=== PATIENT | female | born 1955 | race Caucasian/White ===

== ENCOUNTER 2017-03-29 06:20 | Outpatient (CLI) | payer OTHER ==
[~2017-03-29 06:20] MED LIST: CLON-528 PO; ESCI10TA54 PO; LEVO100T9 PO; MELO-102 PO; METH4TAB81 PO; SIMV20TA5 PO
[2017-03-29 08:33] LABS: BASOPHILS % (AUTO) 0.6 % (0-1); EOSINOPHILS # (AUTO) 0.1 X10'3 (0-0.9); EOSINOPHILS % (AUTO) 3.4 % (0-6); HEMATOCRIT 40.4 % (35.0-45.0); HEMOGLOBIN 13.7 g/dl (12.0-16.0); LYMPHOCYTES # (AUTO) 1.4 X10'3 (1.1-4.8); LYMPHOCYTES % (AUTO) 33.9 % (21-51); MEAN CORPUSCULAR HEMOGLOBIN 31.2 PG (27.0-31.0); MEAN CORPUSCULAR VOLUME 91.9 FL (78-98); MEAN PLATELET VOLUME 8.9 FL (7.4-10.4); MONOCYTES # (AUTO) 0.3 X10'3 (0-0.9); MONOCYTES % (AUTO) 7.1 % (2-12); NEUTROPHILS # (AUTO) 2.3 X10'3 (1.8-7.7); PLATELET COUNT 176 X10'3 (140-440); RED CELL DISTRIBUTION WIDTH 13.3 % (11.5-14.5); WHITE BLOOD COUNT 4.1 X10'3 (4.5-11.0)
[2017-03-29 08:52] LABS: ALANINE AMINOTRANSFERASE 32 U/L (12-78); ALBUMIN 3.6 G/DL (3.4-5.0); ALBUMIN/GLOBULIN RATIO 1.1 (1.1-1.5); ALKALINE PHOSPHATASE 64 IU/L (46-116); ANION GAP 3 (8-16); ASPARTATE AMINO TRANSFERASE 22 U/L (10-37); BILIRUBIN,TOTAL 0.5 MG/DL (0.1-1.0); BLOOD UREA NITROGEN 12 MG/DL (7-18); BUN/CREATININE RATIO 13.3 (6.6-38.0); CALCIUM 8.9 MG/DL (8.5-10.1); CHLORIDE 106 MMOL/L (99-107); CHOL/HDL RATIO 2.7 (0.00-4.99); CHOLESTEROL 205 MG/DL (0-200); GLUCOSE 101 MG/DL (70-104); HDL CHOLESTEROL 77 MG/DL (35-60); LDL CHOLESTEROL 111 MG/DL (50-100); POTASSIUM 4.3 MMOL/L (3.5-5.1); SODIUM 140 MMOL/L (135-145); TOTAL CARBON DIOXIDE 31.2 MMOL/L (24-32); TRIGLYCERIDES 65 MG/DL (20-135); eGFR 64 ML/MIN
== END 2017-03-29 23:59 | disposition home or self-care (01) ==
LOC: LAB 06:20
PROVIDERS: ATTEND Physician Assistant
DX: E03.8 Other specified hypothyroidism (principal); E78.00 Pure hypercholesterolemia, unspecified; R79.89 Other specified abnormal findings of blood chemistry; J45.909 Unspecified asthma, uncomplicated; Z85.3 Personal history of malignant neoplasm of breast; Z98.890 Other specified postprocedural states
CPT/HCPCS: 36415; 80053; 80061; 82306; 84443; 85025

== ENCOUNTER 2017-04-13 05:01 | Emergency (ER) | payer OTHER ==
[~2017-04-13] VITALS: Ht 170.2 cm; Wt 95.3 kg
[2017-04-13] MEDS ORDERED: normal saline 1000ml 1,000 ML IV ONE (05:10)
[2017-04-13] MEDS ORDERED: normal saline 1000ML IV soln IVB ONE (05:10)
[2017-04-13] MEDS ORDERED: ondansetron/PF 4mg/2ml inj IV ONE (05:10)
[2017-04-13 05:34] LABS: BASOPHILS % (AUTO) 0.5 % (0-1); EOSINOPHILS # (AUTO) 0.1 X10'3 (0-0.9); EOSINOPHILS % (AUTO) 1.8 % (0-6); HEMATOCRIT 39.9 % (35.0-45.0); HEMOGLOBIN 13.8 g/dl (12.0-16.0); LYMPHOCYTES # (AUTO) 1.6 X10'3 (1.1-4.8); LYMPHOCYTES % (AUTO) 21.1 % (21-51); MEAN CORPUSCULAR HEMOGLOBIN 31.4 PG (27.0-31.0); MEAN CORPUSCULAR HGB CONC 34.5 % (33.0-36.5); MEAN CORPUSCULAR VOLUME 91.1 FL (78-98); MEAN PLATELET VOLUME 8.8 FL (7.4-10.4); MONOCYTES # (AUTO) 0.5 X10'3 (0-0.9); MONOCYTES % (AUTO) 7.1 % (2-12); NEUTROPHILS # (AUTO) 5.2 X10'3 (1.8-7.7); NEUTROPHILS % (AUTO) 69.5 % (42-75); PLATELET COUNT 170 X10'3 (140-440); RED BLOOD COUNT 4.38 X10'6 (4.20-5.60); RED CELL DISTRIBUTION WIDTH 13.2 % (11.5-14.5); WHITE BLOOD COUNT 7.5 X10'3 (4.5-11.0)
[2017-04-13 05:44] LABS: PARTIAL THROMBOPLASTIN TIME 29 SECONDS (22-32)
[2017-04-13 05:49] LABS: ALANINE AMINOTRANSFERASE 20 U/L (12-78); ALBUMIN 3.4 G/DL (3.4-5.0); ALBUMIN/GLOBULIN RATIO 0.9 (1.1-1.5); ALKALINE PHOSPHATASE 68 IU/L (46-116); ANION GAP 9 (8-16); ASPARTATE AMINO TRANSFERASE 16 U/L (10-37); BILIRUBIN,TOTAL 0.6 MG/DL (0.1-1.0); BLOOD UREA NITROGEN 12 MG/DL (7-18); CALCIUM 8.9 MG/DL (8.5-10.1); CHLORIDE 106 MMOL/L (99-107); GLUCOSE 115 MG/DL (70-104); LIPASE 84 U/L (73-393); MAGNESIUM 2.1 MG/DL (1.5-2.4); POTASSIUM 3.5 MMOL/L (3.5-5.1); SODIUM 141 MMOL/L (135-145); TOTAL CARBON DIOXIDE 26.4 MMOL/L (24-32); TOTAL PROTEIN 7.2 G/DL (6.4-8.2); eGFR 73 ML/MIN
[2017-04-13] MEDS ORDERED: ONDA4TAB9 PO (06:09)
[2017-04-13 06:27] VITALS: BP 160/89
== END 2017-04-13 06:29 | disposition home or self-care (01) ==
LOC: ER 05:02
DX: J11.1 Influenza due to unidentified influenza virus with other respiratory manifestations (principal); B34.9 Viral infection, unspecified; E03.9 Hypothyroidism, unspecified; Z98.890 Other specified postprocedural states; Z79.899 Other long term (current) drug therapy; Z88.5 Allergy status to narcotic agent
CPT/HCPCS: 36415; 71045; 80053; 83605; 83690; 83735; 84145; 85025; 85610; 85730; 87040; 96374; 99285; J2405; J7030

== ENCOUNTER 2017-05-22 15:29 | Observation (INO) | payer OTHER ==
[~2017-05-22] VITALS: Ht 170.2 cm; Wt 85.0 kg
[2017-05-22] MEDS ORDERED: ondansetron/PF 4mg/2ml inj IV ONE (15:40)
[2017-05-22] MEDS ORDERED: diphenhydrAMINE 50 mg/ml inj IV ONE (15:40)
[2017-05-22] MEDS ORDERED: meclizine 12.5mg tablet PO ONE (15:40)
[2017-05-22] MEDS ORDERED: LORazepam 2 mg/ml vial IV ONE (15:40)
[2017-05-22 16:00] LABS: BASOPHILS % (AUTO) 0.7 % (0-1); EOSINOPHILS # (AUTO) 0.1 X10'3 (0-0.9); EOSINOPHILS % (AUTO) 1.5 % (0-6); HEMATOCRIT 43.6 % (35.0-45.0); HEMOGLOBIN 14.8 g/dl (12.0-16.0); LYMPHOCYTES # (AUTO) 1.4 X10'3 (1.1-4.8); LYMPHOCYTES % (AUTO) 23.6 % (21-51); MEAN CORPUSCULAR HEMOGLOBIN 31.2 PG (27.0-31.0); MEAN CORPUSCULAR HGB CONC 33.9 % (33.0-36.5); MEAN CORPUSCULAR VOLUME 91.8 FL (78-98); MEAN PLATELET VOLUME 9.4 FL (7.4-10.4); MONOCYTES # (AUTO) 0.3 X10'3 (0-0.9); MONOCYTES % (AUTO) 4.9 % (2-12); NEUTROPHILS # (AUTO) 4.2 X10'3 (1.8-7.7); NEUTROPHILS % (AUTO) 69.3 % (42-75); PLATELET COUNT 166 X10'3 (140-440); RED BLOOD COUNT 4.75 X10'6 (4.20-5.60); RED CELL DISTRIBUTION WIDTH 13.6 % (11.5-14.5); WHITE BLOOD COUNT 6.1 X10'3 (4.5-11.0)
[2017-05-22 16:24] LABS: ALANINE AMINOTRANSFERASE 31 U/L (12-78); ALBUMIN 3.8 G/DL (3.4-5.0); ALKALINE PHOSPHATASE 57 IU/L (46-116); ANION GAP 12 (8-16); ASPARTATE AMINO TRANSFERASE 21 U/L (10-37); BILIRUBIN,TOTAL 0.5 MG/DL (0.1-1.0); BLOOD UREA NITROGEN 14 MG/DL (7-18); BUN/CREATININE RATIO 16.5 (6.6-38.0); CALCIUM 9.5 MG/DL (8.5-10.1); CHLORIDE 104 MMOL/L (99-107); CREATININE 0.85 MG/DL (0.40-0.90); GLUCOSE 118 MG/DL (70-104); POTASSIUM 3.5 MMOL/L (3.5-5.1); SODIUM 139 MMOL/L (135-145); TOTAL CARBON DIOXIDE 22.9 MMOL/L (24-32); TOTAL PROTEIN 7.7 G/DL (6.4-8.2); eGFR 68 ML/MIN
[2017-05-22] MEDS ORDERED: acetaminophen 325mg tablet PO PRN (17:45)
[2017-05-22] MEDS ORDERED: ondansetron/PF 4mg/2ml inj IV PRN (17:45)
[2017-05-22] MEDS ORDERED: mag hydrox/Alum hydrox/simeth 30ml oral suspension PO PRN (17:45)
[2017-05-22] MEDS ORDERED: LORazepam 2 mg/ml vial IV PRN (17:45)
[2017-05-22] MEDS ORDERED: magnesium hydroxide 30ml (MOM) UD suspension PO PRN (17:45)
[2017-05-22] MEDS ORDERED: ondansetron 4mg rapidly disintigrating tab PO PRN (17:45)
[2017-05-22] MEDS: normal saline 1000ml 1,000 ML IV SCH (18:42)
[2017-05-22] MEDS ORDERED: PANT40TA4 PO (20:47)
[2017-05-22 21:21] VITALS: BP 145/73
[2017-05-22] MEDS: meclizine 12.5mg tablet PO PRN (22:04)
[2017-05-23] VITALS: BP 104/68
[2017-05-23] MEDS: meclizine 12.5mg tablet PO PRN ×2 (03:53→09:51)
[2017-05-23] MEDS: normal saline 1000ml 1,000 ML IV SCH ×2 (04:01→13:45)
[2017-05-23 07:00] VITALS: BP 108/62
[2017-05-23] MEDS: enoxaparin 40mg/0.4ml syringe SUBCUT SCH (07:52)
[2017-05-23 11:00] VITALS: BP 122/62
[2017-05-23] MEDS ORDERED: clonazePAM 0.5mg tablet PO PRN (12:00)
[2017-05-23] MEDS: levoTHYROXINE 100mcg tablet PO SCH (12:45)
[2017-05-23 19:00] VITALS: BP 115/64
[2017-05-23] MEDS ORDERED: atorvastatin 10mg tablet PO SCH (21:00)
[2017-05-24] VITALS: BP 113/59
[2017-05-24] MEDS: normal saline 1000ml 1,000 ML IV SCH (00:37)
[2017-05-24] MEDS: levoTHYROXINE 100mcg tablet PO SCH (07:12)
[2017-05-24] MEDS: enoxaparin 40mg/0.4ml syringe SUBCUT SCH (07:12)
[2017-05-24] MEDS ORDERED: citalopram 20mg tablet PO SCH (08:00)
[2017-05-24] MEDS ORDERED: pantoprazole 40mg Tablet.DR PO SCH (08:00)
[2017-05-24] MEDS ORDERED: MECL-111 PO (11:56)
[2017-05-24] MEDS ORDERED: DIAZ2TAB3 PO (11:56)
[2017-05-24] MEDS ORDERED: ONDA4TAB9 PO (11:56)
== END 2017-05-24 12:30 | disposition home or self-care (01) ==
LOC: ER 15:30 → ED HOLD 17:50 → CMPBEDREQ 21:59 → SUR 3N 22:00
PROVIDERS: ADMIT Family Medicine; ATTEND Family Medicine
DX: R42 Dizziness and giddiness (principal); E03.9 Hypothyroidism, unspecified; E78.5 Hyperlipidemia, unspecified; F41.9 Anxiety disorder, unspecified; F32.9 Major depressive disorder, single episode, unspecified; Z85.3 Personal history of malignant neoplasm of breast; Z85.42 Personal history of malignant neoplasm of other parts of uterus; Z90.11 Acquired absence of right breast and nipple; Z90.710 Acquired absence of both cervix and uterus
CPT/HCPCS: 36415; 70450; 80053; 83735; 85025; 87070; 93005; 96361; 96372; 96374; 96375; 96376; 97161; 97530; 99285; G0378; J1200; J1650; J2060; J2405; J7030; J8597

== ENCOUNTER 2017-07-31 08:29 | Outpatient (CLI) | payer OTHER ==
[~2017-07-31 08:29] MED LIST changes: +DIAZ2TAB3 PO; +MECL-111 PO; -MELO-102 PO; -METH4TAB81 PO; +PANT40TA4 PO
== END 2017-07-31 23:59 | disposition home or self-care (01) ==
LOC: RAD 08:29
PROVIDERS: ATTEND Physician Assistant
DX: M19.011 Primary osteoarthritis, right shoulder (principal); R53.1 Weakness; J45.909 Unspecified asthma, uncomplicated; Z87.891 Personal history of nicotine dependence
CPT/HCPCS: 73221

== ENCOUNTER 2017-09-21 10:46 | Outpatient (CLI) | payer OTHER | END 2017-09-21 23:59 | disposition home or self-care (01) | LOC: RAD 10:46 | PROVIDERS: ATTEND Orthopaedic Surgery | DX: M79.671 Pain in right foot (principal); J45.909 Unspecified asthma, uncomplicated; Z98.890 Other specified postprocedural states | CPT/HCPCS: 73630 ==

== ENCOUNTER 2017-10-25 09:48 | Observation (INO) | payer OTHER ==
[2017-10-23 14:48] LABS: BASOPHILS % (AUTO) 0.5 % (0-1); EOSINOPHILS # (AUTO) 0.1 X10'3 (0-0.9); EOSINOPHILS % (AUTO) 0.9 % (0-6); LYMPHOCYTES # (AUTO) 1.7 X10'3 (1.1-4.8); LYMPHOCYTES % (AUTO) 27.1 % (21-51); MEAN CORPUSCULAR HEMOGLOBIN 32.2 PG (27.0-31.0); MEAN CORPUSCULAR HGB CONC 34.4 % (33.0-36.5); MEAN CORPUSCULAR VOLUME 93.5 FL (78-98); MEAN PLATELET VOLUME 9.2 FL (7.4-10.4); MONOCYTES # (AUTO) 0.4 X10'3 (0-0.9); MONOCYTES % (AUTO) 6.6 % (2-12); NEUTROPHILS # (AUTO) 4.1 X10'3 (1.8-7.7); NEUTROPHILS % (AUTO) 64.9 % (42-75); PRE OP HEMATOCRIT 41.5 % (35.0-45.0); PRE OP HEMOGLOBIN 14.3 g/dL (12.0-16.0); PRE OP PLATELET COUNT 192 X10'3 (140-440); RED BLOOD COUNT 4.44 X10'6 (4.20-5.60); RED CELL DISTRIBUTION WIDTH 13.5 % (11.5-14.5)
[2017-10-23 14:59] LABS: PRE OP PROTIME 10.1 SECONDS (9.0-12.0)
[2017-10-23 15:05] LABS: ALBUMIN 3.4 G/DL (3.4-5.0); ALBUMIN/GLOBULIN RATIO 0.9 (1.1-1.5); ALKALINE PHOSPHATASE 74 IU/L (46-116); BLOOD UREA NITROGEN 13 MG/DL (7-18); BUN/CREATININE RATIO 16.3 (6.6-38.0); CALCIUM 9.1 MG/DL (8.5-10.1); CHLORIDE 105 MMOL/L (99-107); PRE OP ALT 18 U/L (30-65); PRE OP ANION GAP 5 (8-16); PRE OP AST 15 U/L (10-37); PRE OP BILIRUB, TOTAL 0.3 MG/DL (0.0-1.0); PRE OP GLUCOSE 82 MG/DL (70-104); PRE OP POTASSIUM 3.7 MMOL/L (3.4-5.1); PRE OP SODIUM 141 MMOL/L (135-145); TOTAL CARBON DIOXIDE 30.6 MMOL/L (24-32); TOTAL PROTEIN 7.2 G/DL (6.4-8.2); eGFR 73 ML/MIN
[~2017-10-25] VITALS: Ht 170.2 cm; Wt 90.0 kg
[2017-10-25] VITALS (18 sets, daily range): BP systolic 96–130; BP diastolic 57–75
[~2017-10-25 09:48] MED LIST changes: +Cefazolin 2GM/50ML dext iso,osmotic IVPB IV ONE; -DIAZ2TAB3 PO; -MECL-111 PO; -PANT40TA4 PO; +famotidine 20mg tablet PO ONE; +vancomycin inj 1,500 MG in normal saline 300ml IV soln IV ONE
[2017-10-25] MEDS: ringers solution, lacted 1,000 ML IV SCH ×2 (10:26→16:15)
[2017-10-25] MEDS ORDERED: BUPIVAcaine/PF 2.5mg/ml (0.25%) 10ml vial ONE (11:54)
[2017-10-25] MEDS ORDERED: midazolam 2 mg/2 ml injection ONE ×2 (12:25→12:39)
[2017-10-25] MEDS ORDERED: sevoflurane 250ml liquid IH ONE (12:26)
[2017-10-25] MEDS ORDERED: fentaNYL /PF 50mcg/ml 5ml ampule ONE ×2 (12:39→13:24)
[2017-10-25] MEDS ORDERED: propofol inj 20 ML IV ONE (12:51)
[2017-10-25] MEDS ORDERED: ondansetron/PF 4mg/2ml inj ONE (12:51)
[2017-10-25] MEDS ORDERED: dexamethasone sod phosphate 4mg/ml inj. ONE (12:51)
[2017-10-25] MEDS ORDERED: LIDOcaine 2% (20mg/ml) 5ml vial ONE (12:51)
[2017-10-25] MEDS ORDERED: fentaNYL/PF 50MCG/1 ML 2ML syringe IV PRN ×2 (13:05)
[2017-10-25] MEDS ORDERED: enalaprilat dihydrate 2.5mg/2ml vial IV PRN (13:05)
[2017-10-25] MEDS ORDERED: HYDROmorphone inj. 0.5 MG/0.5 ML DISP.SYRIN IV PRN ×3 (13:05→15:20)
[2017-10-25] MEDS ORDERED: ringers solution, lacted 1,000 ML IV SCH (13:05)
[2017-10-25] MEDS ORDERED: hydrALAZINE 20mg/ml inj. IV PRN (13:05)
[2017-10-25] MEDS ORDERED: ondansetron/PF 4mg/2ml inj IV PRN ×2 (13:05→15:20)
[2017-10-25] MEDS ORDERED: diphenhydrAMINE 25mg capsule PO PRN ×2 (15:20)
[2017-10-25] MEDS ORDERED: magnesium hydroxide 30ml (MOM) UD suspension PO PRN (15:20)
[2017-10-25] MEDS ORDERED: HYDROcodone/acetaminophen 10/325mg tab PO PRN (15:20)
[2017-10-25] MEDS ORDERED: bisacodyl 10mg suppository rectal RC PRN (15:20)
[2017-10-25] MEDS ORDERED: acetaminophen 325mg tablet PO PRN (15:20)
[2017-10-25] MEDS ORDERED: HYDROmorphone 1 mg/ml syringe IV PRN (15:38)
[2017-10-25] MEDS: HYDROcodone/acetaminophen 10/325mg tab PO PRN ×2 (16:49→20:55)
[2017-10-25] MEDS: ceFAZolin 1GM/D5W- ADD-VANTAGE 50 ML IV SCH (18:44)
[2017-10-25] MEDS: potassium Cl 20mEq in NS 1,000 ML IV SCH (19:12)
[2017-10-25] MEDS ORDERED: vancomycin/NS 1 GM ADD-VANTAGE 250 ML IV SCH (20:00)
[2017-10-25] MEDS ORDERED: atorvastatin 10mg tablet PO SCH (21:00)
[2017-10-25] MEDS ORDERED: sennosides 8.6mg tablet PO SCH (21:00)
[2017-10-25] MEDS ORDERED: SIMVASTATIN PO SCH (21:00)
[2017-10-26] MEDS: HYDROcodone/acetaminophen 10/325mg tab PO PRN ×2 (00:51→04:55)
[2017-10-26] MEDS: ceFAZolin 1GM/D5W- ADD-VANTAGE 50 ML IV SCH (00:53)
[2017-10-26 01:50] VITALS: BP 94/54
[2017-10-26] MEDS: potassium Cl 20mEq in NS 1,000 ML IV SCH (04:39)
[2017-10-26 06:00] VITALS: BP 100/58
[2017-10-26] MEDS ORDERED: levoTHYROXINE 100mcg tablet PO SCH (08:00)
[2017-10-26] MEDS ORDERED: clonazePAM 0.5mg tablet PO SCH (08:00)
[2017-10-26] MEDS ORDERED: citalopram 20mg tablet PO SCH (08:00)
[2017-10-26] MEDS ORDERED: HYDR-3972 PO (09:05)
[2017-10-26 09:45] VITALS: BP 102/49
== END 2017-10-26 16:54 | disposition home or self-care (01) ==
LOC: PAS 09:48 → ORTHO 4S 15:19
PROVIDERS: ADMIT Orthopaedic Surgery; ATTEND Orthopaedic Surgery
DX: M75.101 Unspecified rotator cuff tear or rupture of right shoulder, not specified as traumatic (principal); M19.011 Primary osteoarthritis, right shoulder; M75.21 Bicipital tendinitis, right shoulder; E78.5 Hyperlipidemia, unspecified; F41.9 Anxiety disorder, unspecified; F32.9 Major depressive disorder, single episode, unspecified; E03.9 Hypothyroidism, unspecified; D62 Acute posthemorrhagic anemia
CPT/HCPCS: 23120; 23130; 23412; 36415; 80053; 85025; 85610; 85730; 93005; 96365; 96366; 96367; 96375; A4565; A6223; A6253; A6449; C1713; G0378; J0690; J1100; J1170; J2001; J2250; J2405; J2704; J3010; J3370; J3490; J7120; A7000

== ENCOUNTER 2018-04-09 06:19 | Outpatient (CLI) | payer OTHER ==
[~2018-04-09 06:19] MED LIST changes: -Cefazolin 2GM/50ML dext iso,osmotic IVPB IV ONE; +HYDR-3972 PO; -famotidine 20mg tablet PO ONE; -vancomycin inj 1,500 MG in normal saline 300ml IV soln IV ONE
[2018-04-09 06:52] LABS: BASOPHILS % (AUTO) 0.8 % (0-1); EOSINOPHILS # (AUTO) 0.1 X10'3 (0-0.9); EOSINOPHILS % (AUTO) 3.6 % (0-6); HEMATOCRIT 41.4 % (35.0-45.0); HEMOGLOBIN 14.3 g/dl (12.0-16.0); LYMPHOCYTES # (AUTO) 1.2 X10'3 (1.1-4.8); LYMPHOCYTES % (AUTO) 30.4 % (21-51); MEAN CORPUSCULAR HEMOGLOBIN 31.9 PG (27.0-31.0); MEAN CORPUSCULAR HGB CONC 34.5 % (33.0-36.5); MEAN CORPUSCULAR VOLUME 92.4 FL (78-98); MEAN PLATELET VOLUME 9.4 FL (7.4-10.4); MONOCYTES # (AUTO) 0.3 X10'3 (0-0.9); MONOCYTES % (AUTO) 7.1 % (2-12); NEUTROPHILS # (AUTO) 2.3 X10'3 (1.8-7.7); NEUTROPHILS % (AUTO) 58.1 % (42-75); PLATELET COUNT 183 X10'3 (140-440); RED BLOOD COUNT 4.48 X10'6 (4.20-5.60); RED CELL DISTRIBUTION WIDTH 13.3 % (11.5-14.5)
[2018-04-09 07:17] LABS: ALANINE AMINOTRANSFERASE 27 U/L (12-78); ALBUMIN 3.4 G/DL (3.4-5.0); ALBUMIN/GLOBULIN RATIO 0.9 (1.1-1.5); ALKALINE PHOSPHATASE 85 IU/L (46-116); ANION GAP 9 (8-16); ASPARTATE AMINO TRANSFERASE 22 U/L (10-37); BILIRUBIN,TOTAL 0.4 MG/DL (0.1-1.0); BLOOD UREA NITROGEN 9 MG/DL (7-18); BUN/CREATININE RATIO 10.7 (6.6-38.0); CALCIUM 8.6 MG/DL (8.5-10.1); CHLORIDE 107 MMOL/L (99-107); CHOL/HDL RATIO 3.9 (0.00-4.99); CHOLESTEROL 235 MG/DL (0-200); CREATININE 0.84 MG/DL (0.40-0.90); GLUCOSE 95 MG/DL (70-104); HDL CHOLESTEROL 61 MG/DL (35-60); LDL CHOLESTEROL 164 MG/DL (50-100); POTASSIUM 4.3 MMOL/L (3.5-5.1); SODIUM 143 MMOL/L (135-145); TOTAL CARBON DIOXIDE 26.9 MMOL/L (24-32); TOTAL PROTEIN 7.1 G/DL (6.4-8.2); TRIGLYCERIDES 50 MG/DL (20-135); eGFR 69 ML/MIN
== END 2018-04-09 23:59 | disposition home or self-care (01) ==
LOC: LAB 06:19
PROVIDERS: ATTEND Physician Assistant
DX: Z51.81 Encounter for therapeutic drug level monitoring (principal); F41.1 Generalized anxiety disorder; R12 Heartburn; R79.89 Other specified abnormal findings of blood chemistry; E78.00 Pure hypercholesterolemia, unspecified; J45.909 Unspecified asthma, uncomplicated; Z96.651 Presence of right artificial knee joint; Z87.891 Personal history of nicotine dependence
CPT/HCPCS: 36415; 80053; 80061; 82306; 84443; 85025

== ENCOUNTER 2018-04-11 09:55 | Outpatient (CLI) | payer OTHER | END 2018-04-11 23:59 | disposition home or self-care (01) | LOC: RAD 09:55 | PROVIDERS: ATTEND Orthopaedic Surgery | DX: M19.042 Primary osteoarthritis, left hand (principal); J45.909 Unspecified asthma, uncomplicated; Z96.612 Presence of left artificial shoulder joint; Z96.611 Presence of right artificial shoulder joint; Z88.5 Allergy status to narcotic agent | CPT/HCPCS: 73140 ==

== ENCOUNTER 2018-04-17 11:12 | Emergency (ER) | payer OTHER ==
[~2018-04-17] VITALS: Ht 170.2 cm; Wt 93.2 kg
[2018-04-17] MEDS ORDERED: proCHLORperazine 10 MG/2 ml inj IV ONE (12:00)
[2018-04-17] MEDS ORDERED: ketorolac tromethamine 15mg/ml inj. IV ONE (12:00)
[2018-04-17] MEDS ORDERED: diphenhydrAMINE 50 mg/ml inj IV ONE (12:00)
[2018-04-17] MEDS ORDERED: normal saline 1000ML IV soln IVB ONE (12:00)
[2018-04-17 13:47] VITALS: BP 102/56
== END 2018-04-17 14:03 | disposition home or self-care (01) ==
LOC: ER 11:12
DX: G43.909 Migraine, unspecified, not intractable, without status migrainosus (principal); H53.412 Scotoma involving central area, left eye; J45.909 Unspecified asthma, uncomplicated; E03.9 Hypothyroidism, unspecified; Z90.710 Acquired absence of both cervix and uterus; Z88.6 Allergy status to analgesic agent
CPT/HCPCS: 96374; 96375; 99284; J0780; J1200; J1885; J7030

== ENCOUNTER 2018-07-19 11:28 | Emergency (ER) | payer OTHER ==
[~2018-07-19] VITALS: Ht 170.2 cm; Wt 90.9 kg
[2018-07-19 13:28] VITALS: BP 126/81
== END 2018-07-19 13:30 | disposition home or self-care (01) ==
LOC: ER 11:28
DX: M25.561 Pain in right knee (principal); G43.909 Migraine, unspecified, not intractable, without status migrainosus; J45.909 Unspecified asthma, uncomplicated; E03.9 Hypothyroidism, unspecified; Z85.3 Personal history of malignant neoplasm of breast; Z90.710 Acquired absence of both cervix and uterus; Z98.890 Other specified postprocedural states; Z60.2 Problems related to living alone; Z88.5 Allergy status to narcotic agent; Z79.899 Other long term (current) drug therapy; X50.1XXA Overexertion from prolonged static or awkward postures, initial encounter; Y93.89 Activity, other specified; Y92.89 Other specified places as the place of occurrence of the external cause; Y99.8 Other external cause status
CPT/HCPCS: 73564; 99283

== ENCOUNTER 2018-10-16 10:02 | Outpatient (CLI) | payer OTHER | END 2018-10-16 23:59 | disposition home or self-care (01) | LOC: RAD 10:02 | PROVIDERS: ATTEND Orthopaedic Surgery | DX: M17.12 Unilateral primary osteoarthritis, left knee (principal); M76.9 Unspecified enthesopathy, lower limb, excluding foot; J45.909 Unspecified asthma, uncomplicated; Z85.3 Personal history of malignant neoplasm of breast; Z87.891 Personal history of nicotine dependence; Z88.5 Allergy status to narcotic agent | CPT/HCPCS: 73564 ==

== ENCOUNTER 2018-10-31 12:30 | Outpatient (CLI) | payer OTHER | END 2018-10-31 23:59 | disposition home or self-care (01) | LOC: RAD 12:30 | PROVIDERS: ATTEND Physician Assistant | DX: M81.0 Age-related osteoporosis without current pathological fracture (principal); J45.909 Unspecified asthma, uncomplicated; Z87.891 Personal history of nicotine dependence | CPT/HCPCS: 73630 ==

== ENCOUNTER 2019-01-01 07:09 | Day surgery (SDC) | payer OTHER ==
[2018-12-30 09:39] LABS: BASOPHILS % (AUTO) 0.8 % (0-1); EOSINOPHILS # (AUTO) 0.1 X10'3 (0-0.9); EOSINOPHILS % (AUTO) 1.1 % (0-6); LYMPHOCYTES # (AUTO) 1.2 X10'3 (1.1-4.8); LYMPHOCYTES % (AUTO) 26.1 % (21-51); MEAN CORPUSCULAR HEMOGLOBIN 32.4 PG (27.0-31.0); MEAN CORPUSCULAR HGB CONC 34.2 g/dL (33.0-36.5); MEAN CORPUSCULAR VOLUME 94.8 FL (78-98); MEAN PLATELET VOLUME 9.4 FL (7.4-10.4); MONOCYTES # (AUTO) 0.4 X10'3 (0-0.9); MONOCYTES % (AUTO) 7.7 % (2-12); NEUTROPHILS % (AUTO) 64.3 % (42-75); PRE OP HEMATOCRIT 41.9 % (35.0-45.0); PRE OP HEMOGLOBIN 14.3 g/dL (12.0-16.0); PRE OP PLATELET COUNT 179 X10'3 (140-440); RED BLOOD COUNT 4.42 X10'6 (4.20-5.60)
[2018-12-30 09:40] LABS: CLARITY,URINE SLIGHTLY CLOUDY (Clear); COLOR,URINE YELLOW (Yellow); GLUCOSE, URINE NEGATIVE (Neg); KETONES,URINE NEGATIVE (Neg); LEUKOCYTE ESTERASE ,URINE TRACE (Neg); NITRITES, URINE NEGATIVE (Neg); OCCULT BLOOD,URINE SMALL (Neg); PH,URINE 5.5 (4.8-8.0); PROTEIN,URINE NEGATIVE (Neg); UROBILINOGEN,URINE 0.2 E.U/dL (0.2-1.0)
[2018-12-30 09:45] LABS: UA COLLECTION TYPE CLN CATCH MIDSTREAM
[2018-12-30 09:51] LABS: PRE OP PROTIME 10.3 SECONDS (9.0-12.0)
[2018-12-30 09:51] LABS: MUCUS STRANDS MANY /LPF (Neg); SQUAMOUS EPITHELIAL CELL,UR MODERATE /LPF (FEW)
[2018-12-30 09:52] LABS: BACTERIA,URINE FEW /HPF (Neg)
[2018-12-30 09:54] LABS: ALBUMIN 3.6 G/DL (3.4-5.0); ALBUMIN/GLOBULIN RATIO 0.9 (1.1-1.5); ALKALINE PHOSPHATASE 83 IU/L (46-116); BLOOD UREA NITROGEN 9 MG/DL (7-18); BUN/CREATININE RATIO 10.3 (6.6-38.0); CALCIUM 8.9 MG/DL (8.5-10.1); CHLORIDE 106 MMOL/L (99-107); CREATININE 0.87 MG/DL (0.40-0.90); PRE OP ALT 24 U/L (30-65); PRE OP ANION GAP 8 (8-16); PRE OP AST 18 U/L (10-37); PRE OP BILIRUB, TOTAL 0.5 MG/DL (0.0-1.0); PRE OP GLUCOSE 85 MG/DL (70-104); PRE OP POTASSIUM 3.8 MMOL/L (3.4-5.1); PRE OP SODIUM 144 MMOL/L (135-145); TOTAL CARBON DIOXIDE 30.2 MMOL/L (24-32); TOTAL PROTEIN 7.6 G/DL (6.4-8.2); eGFR 66 ML/MIN
[~2019-01-01] VITALS: Ht 170.2 cm; Wt 91.4 kg
[2019-01-01] VITALS (9 sets, daily range): BP systolic 110–132; BP diastolic 67–81
[~2019-01-01 07:09] MED LIST changes: +CHOL10002 PO; +CYAN500T63 PO; -HYDR-3972 PO; -SIMV20TA5 PO; +cefazolin/dext.iso 2gm/50ml 50 ML IV ONE; +famotidine 20mg tablet PO ONE; +ringers solution, lacted 1,000 ML IV SCH
[2019-01-01] MEDS ORDERED: ringers solution, lacted 1,000 ML IV SCH (08:38)
[2019-01-01] MEDS ORDERED: fentaNYL/PF 50MCG/1 ML 2ML syringe IV PRN ×2 (08:40)
[2019-01-01] MEDS ORDERED: HYDROmorphone inj. 0.5 MG/0.5 ML DISP.SYRIN IV PRN ×2 (08:40)
[2019-01-01] MEDS ORDERED: ondansetron/PF 4mg/2ml inj IV PRN (08:40)
[2019-01-01] MEDS ORDERED: hydrALAZINE 20mg/ml inj. IV PRN (08:40)
[2019-01-01] MEDS ORDERED: labetalol 20mg/4ml (5mg/ml) syringe IV PRN (08:40)
[2019-01-01] MEDS ORDERED: BUPIVAcaine/PF 2.5 mg/ml (0.25%) 30ml vial ONE (11:05)
[2019-01-01] MEDS ORDERED: dexamethasone sod phosphate 10mg/ml inj ONE (11:10)
[2019-01-01] MEDS ORDERED: sevoflurane 250ml liquid IH ONE (11:10)
[2019-01-01] MEDS ORDERED: fentaNYL/PF 50MCG/1 ML 2ML syringe ONE (11:14)
[2019-01-01] MEDS ORDERED: midazolam 2 mg/2 ml injection ONE (11:15)
[2019-01-01] MEDS ORDERED: LIDOcaine 2% (20mg/ml) 5ml vial ONE (11:29)
[2019-01-01] MEDS ORDERED: ondansetron/PF 4mg/2ml inj ONE (11:29)
[2019-01-01] MEDS ORDERED: propofol inj 20 ML IV ONE (11:29)
--- NOTE | 2019-01-01 12:04 | NUR ---
Received from OR via [facility], accompanied by Anesthesiologist DR SANTIAGO and report given by Anesthesiologist. PT DROWSY, DENIES PAIN, PT W/3 BANDAIDS COVERING INCISIONS ON LOWER BACK CDI. Addendum: 01/01/19 at 1224 by Darline Zuniga RN Amended: Links added.
--- NOTE | 2019-01-01 13:24 | NUR ---
D/C INSTRUCTIONS GIVEN AND GONE OVER W/PT AND PTS DAUGHTER WHOM VERBALIZE UNDERSTANDING, PT D/CD TO HOME VIA W/C TO PRIVATE VEHICLE W/O INCIDENT. Addendum: 01/01/19 at 1342 by Darline Zuniga RN Amended: Links added.
== END 2019-01-01 13:24 | disposition home or self-care (01) ==
LOC: PAS 07:09
PROVIDERS: ATTEND Surgery
DX: D17.1 Benign lipomatous neoplasm of skin and subcutaneous tissue of trunk (principal); F32.9 Major depressive disorder, single episode, unspecified; M19.90 Unspecified osteoarthritis, unspecified site; E05.00 Thyrotoxicosis with diffuse goiter without thyrotoxic crisis or storm; E03.9 Hypothyroidism, unspecified; E66.9 Obesity, unspecified; Z68.31 Body mass index [BMI] 31.0-31.9, adult; Z88.5 Allergy status to narcotic agent; Z85.3 Personal history of malignant neoplasm of breast; Z87.891 Personal history of nicotine dependence; Z79.899 Other long term (current) drug therapy; Z90.710 Acquired absence of both cervix and uterus; Z90.10 Acquired absence of unspecified breast and nipple; Z96.651 Presence of right artificial knee joint; Z91.09 Other allergy status, other than to drugs and biological substances; Z90.11 Acquired absence of right breast and nipple; Z85.42 Personal history of malignant neoplasm of other parts of uterus; Z79.01 Long term (current) use of anticoagulants; Z82.3 Family history of stroke; Z80.1 Family history of malignant neoplasm of trachea, bronchus and lung
CPT/HCPCS: 21930; 36415; 80053; 81001; 82948; 85025; 85610; 85730; 87088; 93005; J1100; J2001; J2250; J2405; J2704; J3010; J3490; J7120; A4618; A7000

== ENCOUNTER 2019-03-11 06:21 | Emergency (ER) | payer OTHER ==
[~2019-03-11] VITALS: Ht 170.2 cm; Wt 84.0 kg
[~2019-03-11 06:21] MED LIST changes: -cefazolin/dext.iso 2gm/50ml 50 ML IV ONE; -famotidine 20mg tablet PO ONE; -ringers solution, lacted 1,000 ML IV SCH
[2019-03-11 08:10] LABS: BASOPHILS % (AUTO) 1.1 % (0-1); EOSINOPHILS # (AUTO) 0.1 X10'3 (0-0.9); HEMATOCRIT 42.6 % (35.0-45.0); HEMOGLOBIN 14.6 g/dl (12.0-16.0); LYMPHOCYTES # (AUTO) 1.4 X10'3 (1.1-4.8); LYMPHOCYTES % (AUTO) 35.4 % (21-51); MEAN CORPUSCULAR HEMOGLOBIN 32.1 PG (27.0-31.0); MEAN CORPUSCULAR HGB CONC 34.4 g/dL (33.0-36.5); MEAN CORPUSCULAR VOLUME 93.3 FL (78-98); MEAN PLATELET VOLUME 9.2 FL (7.4-10.4); MONOCYTES # (AUTO) 0.3 X10'3 (0-0.9); MONOCYTES % (AUTO) 7.4 % (2-12); NEUTROPHILS # (AUTO) 2.2 X10'3 (1.8-7.7); NEUTROPHILS % (AUTO) 54.1 % (42-75); PLATELET COUNT 178 X10'3 (140-440); RED BLOOD COUNT 4.57 X10'6 (4.20-5.60)
[2019-03-11 09:15] LABS: ALANINE AMINOTRANSFERASE 34 U/L (12-78); ALBUMIN 3.6 G/DL (3.4-5.0); ALKALINE PHOSPHATASE 87 IU/L (46-116); ANION GAP 6 (8-16); ASPARTATE AMINO TRANSFERASE 23 U/L (10-37); BILIRUBIN,TOTAL 0.5 MG/DL (0.1-1.0); BLOOD UREA NITROGEN 10 MG/DL (7-18); CALCIUM 9.1 MG/DL (8.5-10.1); CHLORIDE 108 MMOL/L (99-107); CREATININE 0.83 MG/DL (0.40-0.90); GLUCOSE 86 MG/DL (70-104); POTASSIUM 3.9 MMOL/L (3.5-5.1); SODIUM 143 MMOL/L (135-145); TOTAL CARBON DIOXIDE 29.1 MMOL/L (24-32); TOTAL PROTEIN 7.2 G/DL (6.4-8.2); eGFR 70 ML/MIN
[2019-03-11 09:42] VITALS: BP 67/125
== END 2019-03-11 09:44 | disposition home or self-care (01) ==
LOC: ER 06:22
DX: R42 Dizziness and giddiness (principal); R00.0 Tachycardia, unspecified; G43.909 Migraine, unspecified, not intractable, without status migrainosus; J45.909 Unspecified asthma, uncomplicated; E03.9 Hypothyroidism, unspecified; Z85.3 Personal history of malignant neoplasm of breast; Z98.890 Other specified postprocedural states; Z90.710 Acquired absence of both cervix and uterus; Z88.5 Allergy status to narcotic agent; Z79.899 Other long term (current) drug therapy
CPT/HCPCS: 36415; 71045; 80053; 84484; 85025; 93005; 99284

== ENCOUNTER 2019-03-25 14:36 | Outpatient (CLI) | payer OTHER ==
[~2019-03-25 14:36] MED LIST changes: -ESCI10TA54 PO; +ESCI10TA61 PO
== END 2019-03-25 23:59 | disposition home or self-care (01) ==
LOC: CARD DIAG 14:36
PROVIDERS: ATTEND Physician Assistant
DX: I34.1 Nonrheumatic mitral (valve) prolapse (principal); R00.0 Tachycardia, unspecified
CPT/HCPCS: 93306

== ENCOUNTER 2019-08-02 22:20 | Emergency (ER) | payer OTHER ==
[~2019-08-02] VITALS: Ht 170.2 cm; Wt 90.9 kg
[2019-08-02 23:02] LABS: BASOPHILS # (AUTO) 0.1 X10'3 (0-0.2); EOSINOPHILS # (AUTO) 0.1 X10'3 (0-0.9); EOSINOPHILS % (AUTO) 1.9 % (0-6); HEMOGLOBIN 14.5 g/dl (12.0-16.0); LYMPHOCYTES # (AUTO) 2.7 X10'3 (1.1-4.8); MEAN CORPUSCULAR HEMOGLOBIN 31.6 PG (27.0-31.0); MEAN CORPUSCULAR HGB CONC 33.7 g/dL (33.0-36.5); MEAN CORPUSCULAR VOLUME 93.8 FL (78-98); MEAN PLATELET VOLUME 9.4 FL (7.4-10.4); MONOCYTES # (AUTO) 0.5 X10'3 (0-0.9); MONOCYTES % (AUTO) 8.7 % (2-12); NEUTROPHILS # (AUTO) 2.7 X10'3 (1.8-7.7); NEUTROPHILS % (AUTO) 44.4 % (42-75); PLATELET COUNT 191 X10'3 (140-440); RED BLOOD COUNT 4.59 X10'6 (4.20-5.60); RED CELL DISTRIBUTION WIDTH 13.1 % (11.5-14.5); WHITE BLOOD COUNT 6.2 X10'3 (4.5-11.0)
[2019-08-02 23:05] LABS: ALANINE AMINOTRANSFERASE 27 U/L (12-78); ALBUMIN 3.7 G/DL (3.4-5.0); ALKALINE PHOSPHATASE 100 IU/L (46-116); ANION GAP 7 (8-16); ASPARTATE AMINO TRANSFERASE 23 U/L (10-37); BILIRUBIN,TOTAL 0.4 MG/DL (0.1-1.0); BLOOD UREA NITROGEN 12 MG/DL (7-18); CALCIUM 8.9 MG/DL (8.5-10.1); CHLORIDE 109 MMOL/L (99-107); CREATININE 0.86 MG/DL (0.40-0.90); GLUCOSE 100 MG/DL (70-104); POTASSIUM 3.7 MMOL/L (3.5-5.1); SODIUM 142 MMOL/L (135-145); TOTAL CARBON DIOXIDE 25.9 MMOL/L (24-32); TOTAL PROTEIN 7.3 G/DL (6.4-8.2); eGFR 67 ML/MIN
[2019-08-02] MEDS ORDERED: diltiazem 5mg/ml 5ml inj. IV ONE (23:30)
--- NOTE | 2019-08-03 01:24 | NUR ---
Converted to NSR while using commode
[2019-08-03] MEDS ORDERED: METO-539 PO (01:58)
[2019-08-03] MEDS ORDERED: metoprolol succinate 25mg (24-HOUR) SR. Tablet PO SCH (02:00)
[2019-08-03 02:07] VITALS: BP 130/75
== END 2019-08-03 02:10 | disposition home or self-care (01) ==
LOC: ER 22:21
DX: I48.91 Unspecified atrial fibrillation (principal); G43.909 Migraine, unspecified, not intractable, without status migrainosus; J45.909 Unspecified asthma, uncomplicated; F41.9 Anxiety disorder, unspecified; Z90.710 Acquired absence of both cervix and uterus; Z72.89 Other problems related to lifestyle; Z87.891 Personal history of nicotine dependence; Z88.5 Allergy status to narcotic agent; Z79.899 Other long term (current) drug therapy
CPT/HCPCS: 36415; 71045; 80053; 84443; 84484; 85025; 93005; 96374; 99285; J3490

== ENCOUNTER 2019-08-15 08:11 | Outpatient (CLI) | payer OTHER ==
[~2019-08-15] VITALS: Ht 242.3 cm; Wt 67.0 kg
[2019-08-15] VITALS (7 sets, daily range): BP systolic 109–129; BP diastolic 53–61
[~2019-08-15 08:11] MED LIST changes: +METO-539 PO
[2019-08-15] MEDS ORDERED: nitroGLYCERIN 0.4mg SUBLingual tab SL PRN (09:10)
[2019-08-15] MEDS ORDERED: normal saline 500ml IV soln 500 ML IV ONE (09:10)
[2019-08-15] MEDS ORDERED: aminophylline 250mg/10ml inj. IV PRN (09:10)
[2019-08-15] MEDS ORDERED: regadenoson 0.4mg/5ml syringe IV ONE (09:10)
== END 2019-08-15 23:59 | disposition home or self-care (01) ==
LOC: RAD 08:11
PROVIDERS: ATTEND Internal Medicine Cardiovascular Disease
DX: I48.0 Paroxysmal atrial fibrillation (principal); R94.31 Abnormal electrocardiogram [ECG] [EKG]
CPT/HCPCS: 78452; 93017; A9500; J2785; J7040

== ENCOUNTER 2019-10-20 06:18 | Outpatient (CLI) | payer BC ==
[~2019-10-20 06:18] MED LIST changes: -METO-539 PO
== END 2019-10-20 23:59 | disposition home or self-care (01) ==
LOC: LAB 06:18
PROVIDERS: ATTEND Physician Assistant
DX: I48.0 Paroxysmal atrial fibrillation (principal); R00.0 Tachycardia, unspecified
CPT/HCPCS: 36415; 84439; 84443; 84481

== ENCOUNTER 2019-11-11 06:05 | Emergency (ER) | payer BC ==
[~2019-11-11] VITALS: Ht 170.2 cm; Wt 97.7 kg
[2019-11-11 06:37] VITALS: BP 124/84
[2019-11-11] MEDS ORDERED: cephalexin 500mg capsule PO ONE (06:50)
[2019-11-11] MEDS ORDERED: CEPH500C5 PO (06:52)
== END 2019-11-11 07:20 | disposition home or self-care (01) ==
LOC: ER 06:06
DX: L03.113 Cellulitis of right upper limb (principal); G43.909 Migraine, unspecified, not intractable, without status migrainosus; I48.91 Unspecified atrial fibrillation; J45.909 Unspecified asthma, uncomplicated; F41.9 Anxiety disorder, unspecified; Z90.710 Acquired absence of both cervix and uterus; Z98.890 Other specified postprocedural states; Z72.89 Other problems related to lifestyle; Z60.2 Problems related to living alone; Z88.5 Allergy status to narcotic agent; Z79.899 Other long term (current) drug therapy
CPT/HCPCS: 99283

== ENCOUNTER 2019-12-01 07:12 | Emergency (ER) | payer BC, OTHER ==
[~2019-12-01] VITALS: Ht 170.2 cm; Wt 95.5 kg
[~2019-12-01 07:12] MED LIST changes: +CEPH500C5 PO; -CYAN500T63 PO; +CYAN500T64 PO
[2019-12-01] MEDS ORDERED: AZIT-63 PO (09:35)
[2019-12-01 09:51] VITALS: BP 121/79
== END 2019-12-01 09:51 | disposition home or self-care (01) ==
LOC: ER 07:14 → EEVIPCON 07:14 → ER 09:51
DX: J06.9 Acute upper respiratory infection, unspecified (principal); J02.9 Acute pharyngitis, unspecified; Z11.59 Encounter for screening for other viral diseases; G43.909 Migraine, unspecified, not intractable, without status migrainosus; I48.91 Unspecified atrial fibrillation; J45.909 Unspecified asthma, uncomplicated; F41.9 Anxiety disorder, unspecified; Z90.710 Acquired absence of both cervix and uterus; Z98.890 Other specified postprocedural states; Z60.2 Problems related to living alone; Z72.89 Other problems related to lifestyle; Z88.5 Allergy status to narcotic agent; Z79.899 Other long term (current) drug therapy
CPT/HCPCS: 71045; 87081; 87880; 99284

== ENCOUNTER 2019-12-22 11:46 | Emergency (ER) | payer BC ==
[~2019-12-22] VITALS: Ht 167.6 cm; Wt 100.0 kg
[~2019-12-22 11:46] MED LIST changes: +AZIT-63 PO
[2019-12-22 12:11] LABS: BASOPHILS # (AUTO) 0.1 X10'3 (0-0.2); BASOPHILS % (AUTO) 0.8 % (0-1); EOSINOPHILS # (AUTO) 0.1 X10'3 (0-0.9); EOSINOPHILS % (AUTO) 2.2 % (0-6); HEMATOCRIT 41.3 % (35.0-45.0); HEMOGLOBIN 13.9 g/dl (12.0-16.0); LYMPHOCYTES # (AUTO) 1.9 X10'3 (1.1-4.8); LYMPHOCYTES % (AUTO) 29.9 % (21-51); MEAN CORPUSCULAR HEMOGLOBIN 31.5 PG (27.0-31.0); MEAN CORPUSCULAR HGB CONC 33.5 g/dL (33.0-36.5); MEAN CORPUSCULAR VOLUME 93.9 FL (78-98); MEAN PLATELET VOLUME 8.8 FL (7.4-10.4); MONOCYTES # (AUTO) 0.5 X10'3 (0-0.9); MONOCYTES % (AUTO) 7.2 % (2-12); NEUTROPHILS # (AUTO) 3.8 X10'3 (1.8-7.7); NEUTROPHILS % (AUTO) 59.9 % (42-75); PLATELET COUNT 213 X10'3 (140-440); RED CELL DISTRIBUTION WIDTH 13.7 % (11.5-14.5); WHITE BLOOD COUNT 6.3 X10'3 (4.5-11.0)
[2019-12-22 12:30] LABS: ALANINE AMINOTRANSFERASE 25 U/L (12-78); ALBUMIN 3.8 G/DL (3.4-5.0); ALKALINE PHOSPHATASE 71 IU/L (46-116); ANION GAP 7 (8-16); ASPARTATE AMINO TRANSFERASE 23 U/L (10-37); BILIRUBIN,TOTAL 0.5 MG/DL (0.1-1.0); BLOOD UREA NITROGEN 13 MG/DL (7-18); BUN/CREATININE RATIO 14.8 (6.6-38.0); CALCIUM 9.5 MG/DL (8.5-10.1); CHLORIDE 103 MMOL/L (99-107); CREATININE 0.88 MG/DL (0.40-0.90); GLUCOSE 90 MG/DL (70-104); LIPASE 80 U/L (73-393); POTASSIUM 4.1 MMOL/L (3.5-5.1); SODIUM 139 MMOL/L (135-145); TOTAL CARBON DIOXIDE 28.6 MMOL/L (24-32); TOTAL PROTEIN 7.6 G/DL (6.4-8.2); eGFR 65 ML/MIN
[2019-12-22] MEDS ORDERED: famotidine 10mg tablet PO SCH (13:00)
[2019-12-22] MEDS ORDERED: FAMO40TA73 PO (13:02)
[2019-12-22] MEDS ORDERED: famotidine 10mg tablet PO ONE (13:05)
[2019-12-22 16:03] VITALS: BP 110/68
== END 2019-12-22 16:00 | disposition home or self-care (01) ==
LOC: EEVIPCON 11:46 → ER 11:46
DX: R07.89 Other chest pain (principal); R10.13 Epigastric pain; I48.91 Unspecified atrial fibrillation; J45.909 Unspecified asthma, uncomplicated; F41.9 Anxiety disorder, unspecified; Z90.710 Acquired absence of both cervix and uterus; Z98.890 Other specified postprocedural states; Z60.2 Problems related to living alone; Z88.5 Allergy status to narcotic agent; Z79.2 Long term (current) use of antibiotics; Z79.899 Other long term (current) drug therapy
CPT/HCPCS: 36415; 71046; 80053; 83690; 84484; 85025; 93005; 99285

== ENCOUNTER 2020-02-10 06:10 | Outpatient (CLI) | payer BC ==
[~2020-02-10 06:10] MED LIST changes: -AZIT-63 PO; +FAMO40TA73 PO
[2020-02-10 06:56] LABS: BASOPHILS % (AUTO) 1.3 % (0-1); EOSINOPHILS # (AUTO) 0.1 X10'3 (0-0.9); EOSINOPHILS % (AUTO) 3.6 % (0-6); HEMATOCRIT 41.9 % (35.0-45.0); LYMPHOCYTES # (AUTO) 1.2 X10'3 (1.1-4.8); LYMPHOCYTES % (AUTO) 33.4 % (21-51); MEAN CORPUSCULAR HEMOGLOBIN 31.5 PG (27.0-31.0); MEAN CORPUSCULAR HGB CONC 33.4 g/dL (33.0-36.5); MEAN CORPUSCULAR VOLUME 94.1 FL (78-98); MEAN PLATELET VOLUME 9.2 FL (7.4-10.4); MONOCYTES # (AUTO) 0.3 X10'3 (0-0.9); MONOCYTES % (AUTO) 8.5 % (2-12); NEUTROPHILS # (AUTO) 1.9 X10'3 (1.8-7.7); NEUTROPHILS % (AUTO) 53.2 % (42-75); PLATELET COUNT 186 X10'3 (140-440); RED BLOOD COUNT 4.46 X10'6 (4.20-5.60); WHITE BLOOD COUNT 3.6 X10'3 (4.5-11.0)
[2020-02-10 07:14] LABS: ALANINE AMINOTRANSFERASE 26 U/L (12-78); ALBUMIN 3.6 G/DL (3.4-5.0); ALKALINE PHOSPHATASE 66 IU/L (46-116); ANION GAP 8 (8-16); ASPARTATE AMINO TRANSFERASE 19 U/L (10-37); BILIRUBIN,TOTAL 0.6 MG/DL (0.1-1.0); BLOOD UREA NITROGEN 12 MG/DL (7-18); BUN/CREATININE RATIO 12.9 (6.6-38.0); CHLORIDE 109 MMOL/L (99-107); CHOL/HDL RATIO 4.1 (0.00-4.99); CHOLESTEROL 262 MG/DL (0-200); CREATININE 0.93 MG/DL (0.40-0.90); GLUCOSE 99 MG/DL (70-104); HDL CHOLESTEROL 64 MG/DL (35-60); LDL CHOLESTEROL 189 MG/DL (50-100); POTASSIUM 4.2 MMOL/L (3.5-5.1); SODIUM 144 MMOL/L (135-145); TOTAL CARBON DIOXIDE 26.9 MMOL/L (24-32); TOTAL PROTEIN 7.3 G/DL (6.4-8.2); TRIGLYCERIDES 87 MG/DL (20-135); eGFR 61 ML/MIN
[2020-02-11] MEDS ORDERED: SULF1TAB49 PO (07:40)
[2020-02-11 11:47] LABS: THIIODOTHRONINE, FREE, SERUM 2.7 pg/mL (2.0-4.4)
== END 2020-02-10 23:59 | disposition home or self-care (01) ==
LOC: LAB 06:10
PROVIDERS: ATTEND Physician Assistant
DX: Z00.00 Encounter for general adult medical examination without abnormal findings (principal); E78.00 Pure hypercholesterolemia, unspecified; R00.0 Tachycardia, unspecified; I34.1 Nonrheumatic mitral (valve) prolapse; I48.0 Paroxysmal atrial fibrillation; Z79.899 Other long term (current) drug therapy
CPT/HCPCS: 36415; 80053; 80061; 82043; 82306; 82570; 84439; 84443; 84481; 85025

== ENCOUNTER 2020-02-11 07:04 | Emergency (ER) | payer BC ==
[~2020-02-11] VITALS: Ht 170.2 cm; Wt 96.8 kg
[2020-02-11 07:06] VITALS: BP 120/63
[2020-02-11] MEDS ORDERED: LIDOcaine 1% W/epiNEPHrine 1:200,000 10ml vial IJ ONE (07:35)
[2020-02-11] MEDS ORDERED: SULF1TAB49 PO (07:40)
[2020-02-11] MEDS ORDERED: LIDOcaine 1% w/epiNEPHrine 1:200,000 30ml vial IJ ONE (07:40)
[2020-02-11] MEDS ORDERED: acetaminophen 325mg tablet PO ONE (10:50)
== END 2020-02-11 11:04 | disposition home or self-care (01) ==
LOC: EEVIPCON 07:04 → ER 07:04
DX: L03.031 Cellulitis of right toe (principal); M79.674 Pain in right toe(s); L60.0 Ingrowing nail; G43.909 Migraine, unspecified, not intractable, without status migrainosus; I48.91 Unspecified atrial fibrillation; J45.909 Unspecified asthma, uncomplicated; F41.9 Anxiety disorder, unspecified; Z90.710 Acquired absence of both cervix and uterus; Z85.3 Personal history of malignant neoplasm of breast; Z98.890 Other specified postprocedural states; Z72.89 Other problems related to lifestyle; Z88.5 Allergy status to narcotic agent; Z79.2 Long term (current) use of antibiotics; Z79.899 Other long term (current) drug therapy
CPT/HCPCS: 11730; 11750; 99284

== ENCOUNTER 2020-03-22 06:45 | Emergency (ER) | payer OTHER ==
[~2020-03-22] VITALS: Ht 170.2 cm; Wt 9.7 kg
[~2020-03-22 06:45] MED LIST changes: -CYAN500T64 PO; +CYAN500T71 PO; -ESCI10TA61 PO; +ESCI10TA66 PO
[2020-03-22] MEDS ORDERED: acetaminophen 325mg tablet PO ONE (07:15)
[2020-03-22] MEDS ORDERED: diphenhydrAMINE 25mg capsule PO ONE (07:15)
[2020-03-22] MEDS ORDERED: CEPH250T PO (07:20)
[2020-03-22] MEDS ORDERED: ondansetron 4mg rapidly disintigrating tab PO ONE (07:20)
[2020-03-22] MEDS ORDERED: cephalexin 250mg capsule PO ONE (07:20)
[2020-03-22] MEDS ORDERED: CLIN150C8 PO (07:22)
[2020-03-22] MEDS ORDERED: clindamycin 150mg capsule PO ONE (07:25)
[2020-03-22 07:34] VITALS: BP 113/63
== END 2020-03-22 07:41 | disposition home or self-care (01) ==
LOC: ER 06:45 → EEVIPCON 06:45 → ER 07:41
DX: L25.1 Unspecified contact dermatitis due to drugs in contact with skin (principal); T50.Z95A Adverse effect of other vaccines and biological substances, initial encounter; I48.91 Unspecified atrial fibrillation; G43.909 Migraine, unspecified, not intractable, without status migrainosus; J45.909 Unspecified asthma, uncomplicated; E05.00 Thyrotoxicosis with diffuse goiter without thyrotoxic crisis or storm; Z85.3 Personal history of malignant neoplasm of breast; Z87.828 Personal history of other (healed) physical injury and trauma; Z90.710 Acquired absence of both cervix and uterus; Z98.890 Other specified postprocedural states; Z72.89 Other problems related to lifestyle; Z60.9 Problem related to social environment, unspecified; Z90.10 Acquired absence of unspecified breast and nipple; Z88.1 Allergy status to other antibiotic agents; Z88.6 Allergy status to analgesic agent; Z79.2 Long term (current) use of antibiotics; Z79.899 Other long term (current) drug therapy; Y92.89 Other specified places as the place of occurrence of the external cause
CPT/HCPCS: 99284; Q0163

== ENCOUNTER 2020-06-03 13:52 | Outpatient (CLI) | payer BC ==
[~2020-06-03 13:52] MED LIST changes: +CEPH-585 PO; +CEPH250T PO; -CEPH500C5 PO; +CLIN150C8 PO; +ESCI-8 PO; -ESCI10TA66 PO
== END 2020-06-03 23:59 | disposition home or self-care (01) ==
LOC: CARD DIAG 13:52
PROVIDERS: ATTEND Internal Medicine Cardiovascular Disease
DX: I08.1 Rheumatic disorders of both mitral and tricuspid valves (principal)
CPT/HCPCS: 93306

== ENCOUNTER 2020-07-20 07:09 | Outpatient (CLI) | payer BC ==
[2020-07-20 08:10] LABS: ALANINE AMINOTRANSFERASE 23 U/L (12-78); ALBUMIN 3.4 G/DL (3.4-5.0); ALBUMIN/GLOBULIN RATIO 0.9 (1.1-1.5); ALKALINE PHOSPHATASE 73 IU/L (46-116); ANION GAP 8 (8-16); ASPARTATE AMINO TRANSFERASE 17 U/L (10-37); BILIRUBIN,TOTAL 0.5 MG/DL (0.1-1.0); BLOOD UREA NITROGEN 12 MG/DL (7-18); BUN/CREATININE RATIO 14.5 (6.6-38.0); CALCIUM 8.8 MG/DL (8.5-10.1); CHLORIDE 107 MMOL/L (99-107); CHOLESTEROL 201 MG/DL (0-200); CREATININE 0.83 MG/DL (0.40-0.90); GLUCOSE 89 MG/DL (70-104); HDL CHOLESTEROL 68 MG/DL (35-60); LDL CHOLESTEROL 113 MG/DL (50-100); POTASSIUM 4.2 MMOL/L (3.5-5.1); SODIUM 141 MMOL/L (135-145); TRIGLYCERIDES 74 MG/DL (20-135); eGFR 69 ML/MIN
== END 2020-07-20 23:59 | disposition home or self-care (01) ==
LOC: LAB 07:09
PROVIDERS: ATTEND Internal Medicine Cardiovascular Disease
DX: E78.5 Hyperlipidemia, unspecified (principal)
CPT/HCPCS: 36415; 80053; 80061

== ENCOUNTER 2020-07-24 15:26 | Emergency (ER) | payer BC ==
[~2020-07-24] VITALS: Ht 170.2 cm; Wt 95.5 kg
[2020-07-24] MEDS ORDERED: LIDOcaine/epinephrine/tetracaine TOPICAL sol 3 ML syringe TOP ONE (16:05)
[2020-07-24 16:11] VITALS: BP 126/75
--- NOTE | 2020-07-24 17:02 | NUR ---
PATIENT WAS TREATED AND DISCHARGED PER PROVIDER.
== END 2020-07-24 17:01 | disposition home or self-care (01) ==
LOC: ER 15:27
DX: S61.412A Laceration without foreign body of left hand, initial encounter (principal); G43.909 Migraine, unspecified, not intractable, without status migrainosus; I48.91 Unspecified atrial fibrillation; J45.909 Unspecified asthma, uncomplicated; F41.9 Anxiety disorder, unspecified; Z90.710 Acquired absence of both cervix and uterus; Z98.890 Other specified postprocedural states; Z72.89 Other problems related to lifestyle; Z85.3 Personal history of malignant neoplasm of breast; Z60.2 Problems related to living alone; Z88.1 Allergy status to other antibiotic agents; Z88.5 Allergy status to narcotic agent; Z79.899 Other long term (current) drug therapy; W54.0XXA Bitten by dog, initial encounter; Y93.89 Activity, other specified; Y92.89 Other specified places as the place of occurrence of the external cause; Y99.8 Other external cause status
CPT/HCPCS: 99282

== ENCOUNTER → 2020-09-29 | Outpatient (CLI) | payer BC ==
[2020-09-29 09:49] LABS: ALANINE AMINOTRANSFERASE 36 U/L (12-78); ALBUMIN 3.5 G/DL (3.4-5.0); ALBUMIN/GLOBULIN RATIO 1.1 (1.1-1.5); ALKALINE PHOSPHATASE 64 IU/L (46-116); ASPARTATE AMINO TRANSFERASE 26 U/L (10-37); BILIRUBIN,TOTAL 0.5 MG/DL (0.1-1.0); BLOOD UREA NITROGEN 10 MG/DL (7-18); BUN/CREATININE RATIO 11.6 (6.6-38.0); CALCIUM 8.5 MG/DL (8.5-10.1); CHOL/HDL RATIO 2.4 (0.00-4.99); CHOLESTEROL 153 MG/DL (0-200); CREATININE 0.86 MG/DL (0.40-0.90); GLUCOSE 89 MG/DL (70-104); HDL CHOLESTEROL 64 MG/DL (35-60); LDL CHOLESTEROL 71 MG/DL (50-100); TOTAL CARBON DIOXIDE 27.7 MMOL/L (24-32); TOTAL PROTEIN 6.8 G/DL (6.4-8.2); TRIGLYCERIDES 59 MG/DL (20-135); eGFR 66 ML/MIN
[2020-09-29 11:02] LABS: ANION GAP 6 (8-16); CHLORIDE 109 MMOL/L (99-107); POTASSIUM 4.4 MMOL/L (3.5-5.1); SODIUM 143 MMOL/L (135-145)
== END | disposition home or self-care (01) ==
LOC: LAB 07:36
PROVIDERS: ATTEND Internal Medicine Cardiovascular Disease
DX: E78.5 Hyperlipidemia, unspecified (principal)
CPT/HCPCS: 36415; 80053; 80061

== ENCOUNTER 2020-10-18 05:34 | Day surgery (SDC) | payer BC ==
[2020-10-11 10:26] LABS: PRE OP INR 1.1 INR
[2020-10-11 10:28] LABS: ALBUMIN 3.4 G/DL (3.4-5.0); ALKALINE PHOSPHATASE 67 IU/L (46-116); BLOOD UREA NITROGEN 12 MG/DL (7-18); BUN/CREATININE RATIO 13.8 (6.6-38.0); CALCIUM 8.6 MG/DL (8.5-10.1); CREATININE 0.87 MG/DL (0.40-0.90); PRE OP ALT 23 U/L (30-65); PRE OP AST 20 U/L (10-37); PRE OP BILIRUB, TOTAL 0.6 MG/DL (0.0-1.0); PRE OP GLUCOSE 96 MG/DL (70-104); PRE OP POTASSIUM 3.6 MMOL/L (3.4-5.1); PRE OP SODIUM 144 MMOL/L (135-145); TOTAL PROTEIN 6.8 G/DL (6.4-8.2); eGFR 66 ML/MIN
[2020-10-11 10:28] LABS: BASOPHILS % (AUTO) 0.8 % (0-1); EOSINOPHILS # (AUTO) 0.1 X10'3 (0-0.9); EOSINOPHILS % (AUTO) 1.7 % (0-6); LYMPHOCYTES # (AUTO) 1.4 X10'3 (1.1-4.8); LYMPHOCYTES % (AUTO) 26.7 % (21-51); MEAN CORPUSCULAR HEMOGLOBIN 31.4 PG (27.0-31.0); MEAN CORPUSCULAR HGB CONC 33.8 g/dL (33.0-36.5); MEAN CORPUSCULAR VOLUME 92.9 FL (78-98); MEAN PLATELET VOLUME 9.3 FL (7.4-10.4); MONOCYTES # (AUTO) 0.3 X10'3 (0-0.9); MONOCYTES % (AUTO) 6.6 % (2-12); NEUTROPHILS # (AUTO) 3.3 X10'3 (1.8-7.7); NEUTROPHILS % (AUTO) 64.2 % (42-75); PRE OP HEMOGLOBIN 13.5 g/dL (12.0-16.0); PRE OP PLATELET COUNT 172 X10'3 (140-440); RED CELL DISTRIBUTION WIDTH 14.1 % (11.5-14.5)
[2020-10-11 10:36] LABS: CHLORIDE 109 MMOL/L (99-107); PRE OP ANION GAP 7 (8-16)
[~2020-10-18] VITALS: Ht 170.2 cm; Wt 101.2 kg
[~2020-10-18 05:34] MED LIST changes: +APIX5TAB3 PO; +ATOR40TA PO; -CEPH-585 PO; -CEPH250T PO; -CHOL10002 PO; -CLIN150C8 PO; -CYAN500T71 PO; +DOCUMENT DATE & TIME OF BETA-BLOCKER PO ONE; -FAMO40TA73 PO; +FLEC50TA28 PO; +METO-539 PO; +cefazolin/dext.iso 2gm/100ml IV ONE; +famotidine 20mg tablet PO ONE; +ringers solution, lacted 1,000 ML IV SCH
[2020-10-18 05:40] VITALS: BP 121/70
[2020-10-18] MEDS ORDERED: BUPIVAcaine/PF 2.5mg/ml (0.25%) 10ml vial ONE (06:16)
[2020-10-18] MEDS ORDERED: fentaNYL/PF 50MCG/1 ML 2ML syringe ONE (07:09)
[2020-10-18] MEDS ORDERED: midazolam 1 mg/ML 2ml injection ONE (07:09)
[2020-10-18 07:45] VITALS: BP 118/72
[2020-10-18] MEDS ORDERED: proCHLORperazine 10 MG/2 ml inj IV PRN (07:45)
[2020-10-18] MEDS ORDERED: morphine 2 MG/ML inj. syringe IV PRN (07:45)
[2020-10-18] MEDS ORDERED: meperidine/PF 25mg/ml syringe IV PRN ×3 (07:45)
[2020-10-18] MEDS ORDERED: ondansetron/PF 4mg/2ml inj IV PRN (07:45)
[2020-10-18] MEDS ORDERED: morphine 4 MG/ML inj SYRINge IV PRN (07:45)
[2020-10-18] MEDS ORDERED: ringers solution, lacted 1,000 ML IV SCH (07:45)
--- NOTE | 2020-10-18 07:45 | NUR ---
RECEIVED FROM OR VIA DR DELORIS ARCE PRESENT-REPORT GIVEN, PT WAKING UP, VSS, RIGHT HAND-WRAPPED CDI, +CAP REFILL, 20G TO LEFT HAND, DENIES PAIN.
[2020-10-18 07:55] VITALS: BP 127/73
[2020-10-18 08:05] VITALS: BP 117/68
[2020-10-18 08:15] VITALS: BP 130/74
[2020-10-18 08:25] VITALS: BP 127/73
--- NOTE | 2020-10-18 08:35 | NUR ---
PT DRESSED, VSS, PIV D/CD, RIGHT HAND DRSG-CDI, +CAP REFILL, CSM INTACT, ABLE TO MOVE FINGERS, D/C INSTRUCTIONS GIVEN-ALL QUESTIONS ANSWERED, TAKEN WITH BELONGINGS TO FRIENDS CAR. Addendum: 10/18/20 at 0900 by Jessa Calvo RN Amended: Links added.
== END 2020-10-18 08:35 | disposition home or self-care (01) ==
LOC: PAS 05:34
PROVIDERS: ATTEND Orthopaedic Surgery Hand Surgery
DX: G56.01 Carpal tunnel syndrome, right upper limb (principal); M65.331 Trigger finger, right middle finger; I48.91 Unspecified atrial fibrillation; G47.30 Sleep apnea, unspecified; F41.9 Anxiety disorder, unspecified; M18.12 Unilateral primary osteoarthritis of first carpometacarpal joint, left hand; E66.9 Obesity, unspecified; Z68.35 Body mass index [BMI] 35.0-35.9, adult; E05.00 Thyrotoxicosis with diffuse goiter without thyrotoxic crisis or storm; Z79.01 Long term (current) use of anticoagulants; Z79.899 Other long term (current) drug therapy; Z88.5 Allergy status to narcotic agent; Z88.8 Allergy status to other drugs, medicaments and biological substances; Z88.1 Allergy status to other antibiotic agents; Z87.891 Personal history of nicotine dependence; Z85.3 Personal history of malignant neoplasm of breast; Z85.42 Personal history of malignant neoplasm of other parts of uterus; Z96.651 Presence of right artificial knee joint; Z90.710 Acquired absence of both cervix and uterus; Z98.890 Other specified postprocedural states
CPT/HCPCS: 26055; 29848; 36415; 71046; 80053; 82948; 85025; 85610; 85730; J2250; J3010; J3490; Z7506; Z7512; A4215; A7000; J7120

== ENCOUNTER 2020-10-21 08:12 | Emergency (ER) | payer BC ==
[~2020-10-21] VITALS: Ht 170.2 cm; Wt 97.3 kg
[~2020-10-21 08:12] MED LIST changes: -DOCUMENT DATE & TIME OF BETA-BLOCKER PO ONE; -cefazolin/dext.iso 2gm/100ml IV ONE; -famotidine 20mg tablet PO ONE; -ringers solution, lacted 1,000 ML IV SCH
[2020-10-21] MEDS ORDERED: acetaminophen 325mg tablet PO ONE (09:50)
[2020-10-21 10:07] VITALS: BP 144/78
== END 2020-10-21 10:09 | disposition home or self-care (01) ==
LOC: EEVIPCON 08:13 → ER 08:13
DX: S09.90XA Unspecified injury of head, initial encounter (principal); M25.531 Pain in right wrist; G43.909 Migraine, unspecified, not intractable, without status migrainosus; J45.909 Unspecified asthma, uncomplicated; F41.9 Anxiety disorder, unspecified; I51.9 Heart disease, unspecified; Z88.1 Allergy status to other antibiotic agents; Z88.5 Allergy status to narcotic agent; Z79.899 Other long term (current) drug therapy; W19.XXXA Unspecified fall, initial encounter; Y93.89 Activity, other specified; Y92.89 Other specified places as the place of occurrence of the external cause; Y99.8 Other external cause status
CPT/HCPCS: 70450; 73110; 99284

== ENCOUNTER 2020-11-03 10:55 | Outpatient (CLI) | payer BC | END 2020-11-03 23:59 | disposition home or self-care (01) | LOC: RAD 10:55 | DX: S69.91XA Unspecified injury of right wrist, hand and finger(s), initial encounter (principal); M19.031 Primary osteoarthritis, right wrist; M19.041 Primary osteoarthritis, right hand; X58.XXXA Exposure to other specified factors, initial encounter; Y93.89 Activity, other specified; Y92.89 Other specified places as the place of occurrence of the external cause; Y99.8 Other external cause status | CPT/HCPCS: 73110; 73130 ==

== ENCOUNTER 2020-12-21 09:51 | Outpatient (CLI) | payer BC | END 2020-12-21 23:59 | disposition home or self-care (01) | LOC: RAD 09:51 | PROVIDERS: ATTEND Orthopaedic Surgery | DX: S69.91XA Unspecified injury of right wrist, hand and finger(s), initial encounter (principal); X58.XXXA Exposure to other specified factors, initial encounter; Y93.89 Activity, other specified; Y92.89 Other specified places as the place of occurrence of the external cause; Y99.8 Other external cause status | CPT/HCPCS: 73110 ==

== ENCOUNTER 2021-01-04 06:30 | Emergency (ER) | payer BC ==
[~2021-01-04] VITALS: Ht 170.2 cm; Wt 102.3 kg
[~2021-01-04 06:30] MED LIST changes: +FAMO-128 PO
[2021-01-04] MEDS ORDERED: LIDOcaine Viscous 15ml cup MM ONE (07:00)
[2021-01-04] MEDS ORDERED: mag hydrox/Alum hydrox/simeth 30ml oral suspension PO ONE (07:00)
[2021-01-04] MEDS ORDERED: aspirin 325mg tablet PO ONE (07:00)
[2021-01-04] MEDS ORDERED: famotidine/PF 10 mg/ml inj IV ONE (07:00)
[2021-01-04 07:15] LABS: BASOPHILS # (AUTO) 0.1 X10'3 (0-0.2); BASOPHILS % (AUTO) 1.3 % (0-1); EOSINOPHILS # (AUTO) 0.1 X10'3 (0-0.9); HEMATOCRIT 39.4 % (35.0-45.0); HEMOGLOBIN 13.4 g/dl (12.0-16.0); LYMPHOCYTES # (AUTO) 1.3 X10'3 (1.1-4.8); LYMPHOCYTES % (AUTO) 30.3 % (21-51); MEAN CORPUSCULAR HEMOGLOBIN 31.7 PG (27.0-31.0); MEAN CORPUSCULAR HGB CONC 34.1 g/dL (33.0-36.5); MEAN PLATELET VOLUME 8.9 FL (7.4-10.4); MONOCYTES # (AUTO) 0.4 X10'3 (0-0.9); MONOCYTES % (AUTO) 8.4 % (2-12); NEUTROPHILS # (AUTO) 2.5 X10'3 (1.8-7.7); PLATELET COUNT 171 X10'3 (140-440); RED BLOOD COUNT 4.24 X10'6 (4.20-5.60); RED CELL DISTRIBUTION WIDTH 13.5 % (11.5-14.5); WHITE BLOOD COUNT 4.3 X10'3 (4.5-11.0)
[2021-01-04 07:30] LABS: ALANINE AMINOTRANSFERASE 34 U/L (12-78); ALBUMIN 3.3 G/DL (3.4-5.0); ALBUMIN/GLOBULIN RATIO 0.9 (1.1-1.5); ALKALINE PHOSPHATASE 77 IU/L (46-116); ANION GAP 8 (8-16); ASPARTATE AMINO TRANSFERASE 19 U/L (10-37); BILIRUBIN,TOTAL 0.6 MG/DL (0.1-1.0); BLOOD UREA NITROGEN 12 MG/DL (7-18); BUN/CREATININE RATIO 13.8 (6.6-38.0); CALCIUM 8.7 MG/DL (8.5-10.1); CHLORIDE 107 MMOL/L (99-107); CREATININE 0.87 MG/DL (0.40-0.90); GLUCOSE 97 MG/DL (70-104); POTASSIUM 4.1 MMOL/L (3.5-5.1); SODIUM 141 MMOL/L (135-145); TOTAL CARBON DIOXIDE 26.4 MMOL/L (24-32); TOTAL PROTEIN 6.9 G/DL (6.4-8.2); eGFR 66 ML/MIN
[2021-01-04] MEDS ORDERED: PANT-47 PO (10:44)
[2021-01-04 11:05] VITALS: BP 144/83
== END 2021-01-04 11:06 | disposition home or self-care (01) ==
LOC: ER 06:31
DX: R07.89 Other chest pain (principal); R10.10 Upper abdominal pain, unspecified; R12 Heartburn; G43.909 Migraine, unspecified, not intractable, without status migrainosus; I48.91 Unspecified atrial fibrillation; E78.00 Pure hypercholesterolemia, unspecified; J45.909 Unspecified asthma, uncomplicated; E05.00 Thyrotoxicosis with diffuse goiter without thyrotoxic crisis or storm; Z87.81 Personal history of (healed) traumatic fracture; Z85.3 Personal history of malignant neoplasm of breast; Z90.10 Acquired absence of unspecified breast and nipple; Z88.2 Allergy status to sulfonamides; Z88.8 Allergy status to other drugs, medicaments and biological substances; Z79.899 Other long term (current) drug therapy
CPT/HCPCS: 36415; 71045; 80053; 83880; 84484; 85025; 93005; 96374; 99285; J3490

== ENCOUNTER 2021-01-06 06:05 | Outpatient (CLI) | payer BC ==
[~2021-01-06] VITALS: Ht 170.2 cm; Wt 104.8 kg
[2021-01-06] VITALS (7 sets, daily range): BP systolic 113–129; BP diastolic 57–67
[~2021-01-06 06:05] MED LIST changes: +PANT-47 PO
[2021-01-06] MEDS ORDERED: aminophylline 250mg/10ml inj. IV ONE ×2 (09:05→09:20)
[2021-01-06] MEDS ORDERED: regadenoson 0.4mg/5ml syringe IV ONE ×2 (09:05→09:20)
== END 2021-01-06 23:59 | disposition home or self-care (01) ==
LOC: RAD 06:05
PROVIDERS: ATTEND Internal Medicine Cardiovascular Disease
DX: I48.91 Unspecified atrial fibrillation (principal)
CPT/HCPCS: 78452; 93017; A9500; J0280; J2785

== ENCOUNTER 2021-01-07 05:49 | Day surgery (SDC) | payer BC ==
[2021-01-03 08:30] LABS: BASOPHILS # (AUTO) 0.1 X10'3 (0-0.2); BASOPHILS % (AUTO) 1.2 % (0-1); EOSINOPHILS # (AUTO) 0.1 X10'3 (0-0.9); EOSINOPHILS % (AUTO) 2.4 % (0-6); LYMPHOCYTES # (AUTO) 1.4 X10'3 (1.1-4.8); LYMPHOCYTES % (AUTO) 29.9 % (21-51); MEAN CORPUSCULAR HEMOGLOBIN 31.3 PG (27.0-31.0); MEAN CORPUSCULAR HGB CONC 33.5 g/dL (33.0-36.5); MEAN CORPUSCULAR VOLUME 93.4 FL (78-98); MONOCYTES # (AUTO) 0.3 X10'3 (0-0.9); NEUTROPHILS # (AUTO) 2.9 X10'3 (1.8-7.7); NEUTROPHILS % (AUTO) 59.5 % (42-75); PRE OP HEMOGLOBIN 13.7 g/dL (12.0-16.0); PRE OP PLATELET COUNT 174 X10'3 (140-440); RED BLOOD COUNT 4.39 X10'6 (4.20-5.60); RED CELL DISTRIBUTION WIDTH 13.6 % (11.5-14.5)
[2021-01-03 08:41] LABS: ALBUMIN 3.4 G/DL (3.4-5.0); ALBUMIN/GLOBULIN RATIO 0.9 (1.1-1.5); ALKALINE PHOSPHATASE 76 IU/L (46-116); BLOOD UREA NITROGEN 12 MG/DL (7-18); BUN/CREATININE RATIO 13.2 (6.6-38.0); CALCIUM 8.9 MG/DL (8.5-10.1); CHLORIDE 110 MMOL/L (99-107); CREATININE 0.91 MG/DL (0.40-0.90); PRE OP ALT 35 U/L (30-65); PRE OP ANION GAP 7 (8-16); PRE OP AST 23 U/L (10-37); PRE OP BILIRUB, TOTAL 0.6 MG/DL (0.0-1.0); PRE OP GLUCOSE 99 MG/DL (70-104); PRE OP POTASSIUM 4.5 MMOL/L (3.4-5.1); PRE OP SODIUM 146 MMOL/L (135-145); TOTAL CARBON DIOXIDE 29.1 MMOL/L (24-32); TOTAL PROTEIN 7.1 G/DL (6.4-8.2); eGFR 62 ML/MIN
[~2021-01-07] VITALS: Ht 170.2 cm; Wt 104.3 kg
[~2021-01-07 05:49] MED LIST changes: +cefazolin/dext.iso 2gm/50ml 50 ML IV ONE; +famotidine 20mg tablet PO ONE; +ringers solution, lacted 1,000 ML IV SCH
[2021-01-07 06:05] VITALS: BP 122/62
[2021-01-07] MEDS ORDERED: BUPIVAcaine/PF 2.5 mg/ml (0.25%) 30ml vial ONE (06:51)
[2021-01-07] MEDS ORDERED: LIDOcaine 1% 30ml preserv. free vial ONE (07:26)
[2021-01-07] MEDS ORDERED: MIDAZolam 1 MG/ML 5ML VIAL ONE (08:12)
[2021-01-07] MEDS ORDERED: fentaNYL/PF 50MCG/1 ML 2ML syringe ONE (08:12)
[2021-01-07] MEDS ORDERED: ketorolac trometh. 30mg/ml inj. ONE (08:13)
[2021-01-07] MEDS ORDERED: LIDOcaine 2% (20mg/ml) 5ml vial ONE (09:17)
[2021-01-07] MEDS ORDERED: propofol inj 20 ML IV ONE (09:17)
[2021-01-07 09:24] VITALS: BP 121/68
--- NOTE | 2021-01-07 09:27 | NUR ---
Received from OR via [facility] , accompanied by Anesthesiologist OLMAN and report given by Anesthesiolgist. PATIENT WIH 20G PIV IN RIGHT HAND RUNNIGN LR AT 100. 3L NC WITH 96% SATURATIONS. VSS. DENIES PAIN. LEFT WRIST WITH BIAS WRAP RPESENT. PATIENT WITH +CAP REFILL A THIS TIME FINGERS ALL PWD Addendum: 01/07/21 at 0932 by Scotty Amaya RN, RN Amended: Links added.
[2021-01-07 09:30] VITALS: BP 126/66
[2021-01-07 09:40] VITALS: BP 131/70
[2021-01-07 09:50] VITALS: BP 119/57
[2021-01-07 10:00] VITALS: BP 121/62
--- NOTE | 2021-01-07 10:04 | NUR ---
ALL DC CRITERIA FOR DC HAS BEEN MET. VSS. DENIES PAIN AT THIS TIME. PATIENT UNDERSTOOD ALL DC INSTRUCTIONS. TAKEN HOME BY FRIEND. SECURED IN FRONT SEAT. DRESSING IS CDI AND PATIENT. PATIENT IV TAKEN OUT WITHOUT COMPLICATIONS. VSS. Addendum: 01/07/21 at 1019 by Scotty Amaya RN, RN Amended: Links added.
== END 2021-01-07 10:04 | disposition home or self-care (01) ==
LOC: PAS 05:49
PROVIDERS: ATTEND Orthopaedic Surgery Hand Surgery
DX: M18.12 Unilateral primary osteoarthritis of first carpometacarpal joint, left hand (principal); M65.332 Trigger finger, left middle finger; M65.312 Trigger thumb, left thumb; G56.02 Carpal tunnel syndrome, left upper limb; M72.0 Palmar fascial fibromatosis [Dupuytren]; G47.30 Sleep apnea, unspecified; F41.9 Anxiety disorder, unspecified; K21.9 Gastro-esophageal reflux disease without esophagitis; E05.00 Thyrotoxicosis with diffuse goiter without thyrotoxic crisis or storm; Z85.3 Personal history of malignant neoplasm of breast; Z85.42 Personal history of malignant neoplasm of other parts of uterus; Z79.899 Other long term (current) drug therapy; Z79.01 Long term (current) use of anticoagulants; Z20.822 Contact with and (suspected) exposure to COVID-19; Z88.1 Allergy status to other antibiotic agents; Z88.5 Allergy status to narcotic agent; Z90.710 Acquired absence of both cervix and uterus; Z98.890 Other specified postprocedural states; Z96.651 Presence of right artificial knee joint; Z90.12 Acquired absence of left breast and nipple; Z87.891 Personal history of nicotine dependence; Z72.89 Other problems related to lifestyle; Z80.9 Family history of malignant neoplasm, unspecified
CPT/HCPCS: 25445; 26055; 26121; 36415; 64721; 80053; 82948; 85025; 93005; C1762; J1885; J2001; J2250; J2704; J3010; J3490; J7120; U0003; U0005; Z7506; Z7508; A4215; A4618; A7000

== ENCOUNTER → 2021-04-04 | Outpatient (CLI) | payer BC ==
[~2021-04-04] MED LIST changes: -cefazolin/dext.iso 2gm/50ml 50 ML IV ONE; -famotidine 20mg tablet PO ONE; -ringers solution, lacted 1,000 ML IV SCH
== END | disposition home or self-care (01) ==
LOC: RAD 10:13
PROVIDERS: ATTEND Physician Assistant
DX: M17.12 Unilateral primary osteoarthritis, left knee (principal); M25.762 Osteophyte, left knee
CPT/HCPCS: 73564

== ENCOUNTER 2021-05-09 08:28 | Outpatient (CLI) | payer BC, MEDICARE | END 2021-05-09 23:59 | disposition home or self-care (01) | LOC: RAD 08:28 | PROVIDERS: ATTEND Physician Assistant | DX: S83.242A Other tear of medial meniscus, current injury, left knee, initial encounter (principal); S83.512A Sprain of anterior cruciate ligament of left knee, initial encounter; M62.562 Muscle wasting and atrophy, not elsewhere classified, left lower leg; M25.462 Effusion, left knee; M25.762 Osteophyte, left knee; M22.42 Chondromalacia patellae, left knee; R60.9 Edema, unspecified; M17.12 Unilateral primary osteoarthritis, left knee; X58.XXXA Exposure to other specified factors, initial encounter; Y93.89 Activity, other specified; Y92.89 Other specified places as the place of occurrence of the external cause; Y99.8 Other external cause status | CPT/HCPCS: 73721 ==

== ENCOUNTER 2023-11-22 06:00 | Day surgery (SDC) | payer MEDICARE, OTHER ==
[2023-11-14 09:32] LABS: BASOPHILS # (AUTO) 0.1 X10'3 (0-0.2); BASOPHILS % (AUTO) 1.2 % (0-1); EOSINOPHILS # (AUTO) 0.2 X10'3 (0-0.9); EOSINOPHILS % (AUTO) 4.4 % (0-6); HEMATOCRIT 41.1 % (35.0-45.0); HEMOGLOBIN 13.8 g/dl (12.0-16.0); LYMPHOCYTES # (AUTO) 1.3 X10'3 (1.1-4.8); LYMPHOCYTES % (AUTO) 26.3 % (21-51); MEAN CORPUSCULAR HEMOGLOBIN 31.4 PG (27.0-31.0); MEAN CORPUSCULAR HGB CONC 33.6 g/dL (33.0-36.5); MEAN CORPUSCULAR VOLUME 93.5 FL (78-98); MONOCYTES # (AUTO) 0.3 X10'3 (0-0.9); MONOCYTES % (AUTO) 7.1 % (2-12); NEUTROPHILS # (AUTO) 2.9 X10'3 (1.8-7.7); PLATELET COUNT 185 X10'3 (140-440); RED CELL DISTRIBUTION WIDTH 14.1 % (11.5-14.5); WHITE BLOOD COUNT 4.7 X10'3 (4.5-11.0)
[2023-11-14 09:46] LABS: ALBUMIN 3.4 G/DL (3.4-5.0); ANION GAP 6 (8-16); BLOOD UREA NITROGEN 9 MG/DL (7-18); CALCIUM 8.8 MG/DL (8.5-10.1); CHLORIDE 109 MMOL/L (99-107); CREATININE 0.82 MG/DL (0.40-0.90); GLUCOSE 95 MG/DL (70-104); POTASSIUM 4.4 MMOL/L (3.5-5.1); SODIUM 143 MMOL/L (135-145); TOTAL CARBON DIOXIDE 28.2 MMOL/L (24-32); eGFR 70 ML/MIN
[2023-11-14 09:50] LABS: APTT 55 SECONDS (22-32); INR 1.3 INR; PROTHROMBIN TIME 13.4 SECONDS (9.0-12.0)
[2023-11-21 09:12] LABS: BASOPHILS % (AUTO) 0.9 % (0-1); EOSINOPHILS # (AUTO) 0.2 X10'3 (0-0.9); EOSINOPHILS % (AUTO) 4.8 % (0-6); HEMATOCRIT 39.8 % (35.0-45.0); HEMOGLOBIN 13.3 g/dl (12.0-16.0); LYMPHOCYTES # (AUTO) 1.2 X10'3 (1.1-4.8); LYMPHOCYTES % (AUTO) 26.3 % (21-51); MEAN CORPUSCULAR HEMOGLOBIN 31.3 PG (27.0-31.0); MEAN CORPUSCULAR HGB CONC 33.4 g/dL (33.0-36.5); MEAN CORPUSCULAR VOLUME 93.6 FL (78-98); MONOCYTES # (AUTO) 0.4 X10'3 (0-0.9); NEUTROPHILS # (AUTO) 2.8 X10'3 (1.8-7.7); PLATELET COUNT 183 X10'3 (140-440); RED BLOOD COUNT 4.26 X10'6 (4.20-5.60); RED CELL DISTRIBUTION WIDTH 14.1 % (11.5-14.5); WHITE BLOOD COUNT 4.6 X10'3 (4.5-11.0)
[2023-11-21 09:23] LABS: ALBUMIN 3.3 G/DL (3.4-5.0); ANION GAP 6 (8-16); BLOOD UREA NITROGEN 9 MG/DL (7-18); CALCIUM 8.7 MG/DL (8.5-10.1); CHLORIDE 107 MMOL/L (99-107); CREATININE 0.82 MG/DL (0.40-0.90); GLUCOSE 92 MG/DL (70-104); POTASSIUM 4.2 MMOL/L (3.5-5.1); SODIUM 141 MMOL/L (135-145); TOTAL CARBON DIOXIDE 28.3 MMOL/L (24-32); eGFR 70 ML/MIN
[2023-11-21 09:28] LABS: APTT 28 SECONDS (22-32); PROTHROMBIN TIME 10.8 SECONDS (9.0-12.0)
[~2023-11-22] VITALS: Ht 162.6 cm; Wt 97.0 kg
[2023-11-22] VITALS (12 sets, daily range): BP systolic 104–136; BP diastolic 58–71; PULSE 53–72; RESP 12–20; TEMP 98.5; O2SAT 93–97
[~2023-11-22 06:00] MED LIST changes: -CLON-528 PO; +CLON-850 PO
[2023-11-22] MEDS ORDERED: OMEP20CA16 PO (06:46)
[2023-11-22] MEDS ORDERED: DABI75CA8 PO (06:46)
[2023-11-22] MEDS ORDERED: METO-395 PO (06:47)
[2023-11-22] MEDS ORDERED: fentaNYL/PF 50MCG/1 ML 2ML syringe ONE (07:39)
[2023-11-22] MEDS ORDERED: ceFAZolin 1000mg inj ONE (07:39)
[2023-11-22] MEDS ORDERED: LIDOcaine 1% w/EPI 1:100,000 inj. MDV 50 ML VIAL ONE (07:39)
[2023-11-22] MEDS ORDERED: midazolam 1 mg/ML 2ml injection ONE ×2 (07:39→08:56)
[2023-11-22] MEDS ORDERED: diphenhydrAMINE 50 mg/ml inj ONE (08:33)
[2023-11-22] MEDS ORDERED: HYDROcodone/acetaminophen 5mg/325mg tablet PO PRN (10:05)
[2023-11-22] MEDS: cefazolin 2gm/D5W 100mL 100 ML IV ONE (10:16)
[2023-11-22] MEDS ORDERED: CLIN300C3 PO (10:50)
[2023-11-22] MEDS: vancomycin/NS 1 GM ADD-VANTAGE 250 ML X 1 DOSE IV ONE (12:12)
[2023-11-22] MEDS: HYDROcodone/acetaminophen 10/325mg tab PO PRN (14:47)
== END 2023-11-22 16:05 | disposition home or self-care (01) ==
LOC: SSTAY O 06:00
PROVIDERS: ATTEND Internal Medicine Cardiovascular Disease
DX: I49.5 Sick sinus syndrome (principal); I45.10 Unspecified right bundle-branch block; I10 Essential (primary) hypertension; I48.0 Paroxysmal atrial fibrillation; E03.9 Hypothyroidism, unspecified; E78.5 Hyperlipidemia, unspecified; E66.9 Obesity, unspecified; G43.109 Migraine with aura, not intractable, without status migrainosus; G47.33 Obstructive sleep apnea (adult) (pediatric); F41.9 Anxiety disorder, unspecified; F32.A Depression, unspecified; M19.90 Unspecified osteoarthritis, unspecified site; Z85.44 Personal history of malignant neoplasm of other female genital organs; Z85.3 Personal history of malignant neoplasm of breast; Z79.890 Hormone replacement therapy; Z79.899 Other long term (current) drug therapy; Z90.710 Acquired absence of both cervix and uterus; Z96.651 Presence of right artificial knee joint; Z98.890 Other specified postprocedural states; Z68.36 Body mass index [BMI] 36.0-36.9, adult; Z82.3 Family history of stroke; Z80.1 Family history of malignant neoplasm of trachea, bronchus and lung
CPT/HCPCS: 33208; 36415; 71046; 80048; 85025; 85610; 85730; 93005; 99152; 99153; A4565; A6258; A6402; C1785; C1898; J0690; J1200; J2250; J3010; J3370; J3490; J7030; Z7610; A6449

== ENCOUNTER 2024-06-06 13:39 | Outpatient (CLI) | payer MEDICARE, OTHER ==
[~2024-06-06 13:39] MED LIST changes: -APIX5TAB3 PO; -CLON-850 PO; +DABI75CA8 PO; -FAMO-128 PO; +METO-395 PO; -METO-539 PO; +OMEP20CA16 PO; -PANT-47 PO
== END 2024-06-06 23:59 | disposition home or self-care (01) ==
LOC: MRI 13:39
PROVIDERS: ATTEND Physician Assistant
DX: I67.82 Cerebral ischemia (principal); R43.9 Unspecified disturbances of smell and taste; R26.89 Other abnormalities of gait and mobility
CPT/HCPCS: 70551

== ENCOUNTER 2024-09-13 09:00 | Emergency (ER) | payer MEDICARE, OTHER ==
[~2024-09-13] VITALS: Ht 167.6 cm; Wt 91.4 kg
[2024-09-13 09:03] VITALS: TEMP 98.4
[2024-09-13] MEDS ORDERED: HYDR-3973 PO (09:46)
--- NOTE | 2024-09-13 09:46 | Physician Documentation ---
History of Present Illness ~ Chief Complaint: Arm Pain Stated Complaint: ARM PAIN Time Seen by MD: 09:13 OK to notify your PCP?: Yes Primary Medical Doctor: MEÑO CURIEL Source: patient Mode of Arrival: POV Exam Limitations: no limitations HPI 69-year-old female who is right-handed presenting with a left arm pain after she had a ground level fall a week ago. She was in [place] when she had the ground level fall at her brother's . She ended up going to an ER there and was diagnosed with a distal radial fracture and placed in a splint. She states the pain is not controlled with Tylenol alone. She was not prescribed anything for pain as she states she did not think that she would need anything but now is requesting some pain medication as well as a referral to ortho. She also reports the splint is causing her discomfort. Tetanus within 5 years: No Medication Reconciliation Allergies: Coded Allergies: cephalexin (Verified Adverse Reaction, Mild, NAUSEA/VOMITTING, 09/13/24) clindamycin (Unverified Adverse Reaction, Mild, N/V, 09/13/24) morphine (Unverified Adverse Reaction, Mild, VOMITING, 09/13/24) Scheduled Atorvastatin Calcium* (Lipitor*), 0.5 TAB PO DAILY, (Reported) Dabigatran Etexilate Mesylate (Dabigatran Etexilate), 1 TAB PO BID, (Reported) Escitalopram Oxalate (Escitalopram Oxalate), 10 MG PO DAILY, (Reported) Flecainide Acetate (Flecainide Acetate), 1 TAB PO Q12H, (Reported) Levothyroxine Sodium (Levothyroxine Sodium), 100 MCG PO DAILY, (Reported) Metoprolol Succinate (Metoprolol Succinate), 0.5 TAB PO DAILY, (Reported) Omeprazole (Omeprazole), 1 CAP PO DAILY, (Reported) Scheduled PRN Hydrocodone Bit/Acetaminophen (Hydrocodone-Apap 10-325 Tablet), 1 TAB PO TID PRN PRN for pain Past Medical History Past Medical History: Migraine, Vertigo, Atrial Fibrillation, High Cholesterol, Heart Valve Disease, Asthma, Graves' Disease, Extremity Fracture, *CANCER*, Breast Cancer, Anxiety Past Surgical History: cancer surgery, hysterectomy, orthopedic surgeries Other Past Surgical History: mastectomy Alcohol Use: Occasionally Drug Use: none Lives with: Family, Alone Lives In: Home Occupation: employed Review of Systems All Other Systems at this time: Reviewed and Negative Physical Exam Vital Signs: Temperature: 98.4, Source: Oral, Heart Rate: 73, Respiratory Rate: 16, BP: 119/75, Pulse Oximetry: 97, Weight: 91.360 Physical Exam GENERAL: Alert, no acute distress. HEENT: NCAT, EOMI, PERRL, moist oral mucosa. NECK: Supple, trachea midline. CARDIAC: Regular rate and rhythm, no murmurs, rubs, or gallops. PV: Equal distal pulses. No lower extremity edema, cap refill less than 2 seconds. RESPIRATORY: Equal breath sounds, clear to auscultation bilaterally, no respiratory distress. MUSCULOSKELETAL: LEFT ARM IN SPLINT. FINGER INSPECTION NORMAL, MOVING FINGERS AROUND, NO SIGNIFICANT SWELLING, CAP REFILL <2SECONDS. Normal gait. NEUROLOGICAL: Awake, alert, and oriented x 3. SKIN: Warm/dry, no pallor, no rash. PSYCH: Alert and appropriate. Affect congruent with mood. Speech is clear. Good eye contact. Procedures Procedures LEFT WRIST ALREADY IN SPLINT BUT SPLINT WAS ORTHOGLASS AND THUS WE REPLACED WITH PLASTER FOR IMPROVED COMFORT Splinting Location: left wrist Hand-Made Type: PLASTER Splint: sugar-tong Pre-Proc Neuro Vasc Exam: normal Post-Proc Neuro Vasc Exam: normal Splint Placed By: transportation planner Tolerated Procedure Well?: yes, no complications Progress Results/Orders Reviewed/noted all lab results: Yes Results/Orders Orders - MEÑO CURIEL Wrist,Limited (Ap/Lat) (09/13/24 09:26) Ortho Orders (09/13/24 09:56) Completed Orders - MEÑO CURIEL Wrist,Limited (Ap/Lat) (09/13/24 09:26) Vital Signs 09/13/24 09:03 Temp 98.4 Pulse 73 Resp 16 B/P (MAP) 119/75 Pulse Ox 97 Medical Decision Making Wrist Diff Dx:Considerations: Include: Abrasion, Arthritis, DJD, Gout, Rheumatoid, Septic, Carpal tunnel snydrome, Contusion, Dislocation, Fracture- carpal, Fracture-radius, Fracture-ulna, Ganglion, Laceration, Neurovascular injury, Open fracture, Strain Departure Time of Disposition: 09:44 Disposition: 01 HOME / SELF CARE / HOMELESS Impression: Primary Impression: Distal radius fracture, left Qualified Codes: S52.572A - Other intraarticular fracture of lower end of left radius, initial encounter for closed fracture Condition: Stable Discharge Instructions: Forearm Fracture, Pediatric Additional Instructions: KEEP SPLINT ON UNTIL YOU SEE ORTHO I WILL SEND A REFERRAL TO OUR ON-CALL ORTHOPEDIST Referrals: NO PRIMARY CARE PROVIDER (PCP) MAGNOLIA COLBY Jr., MD Prescriptions Hydrocodone Bit/Acetaminophen (Hydrocodone-Apap 10-325 Tablet) 10mg/325mg Tablet 1 TAB PO TID PRN PRN for pain for 5 Days, #15 TAB DX: DISTAL RADIAL FRACTURE S52.5 Prov: MEÑO CURIEL 09/13/24 Education Educated: Patient Educated regarding: diagnosis, treatment, need for follow up Signature Scribe Signature: rohit Attestation: MEÑO Newton Sep 13, 2024 09:46
[2024-09-13 10:23] VITALS: BP 128/73; PULSE 70; RESP 14; O2SAT 94
--- NOTE | 2024-09-13 10:39 | RADIOLOGY REPORT ---
CLINICAL INFORMATION: Left distal radius fracture. TECHNIQUE: 2 views of the left wrist were obtained. COMPARISON: FINDINGS: Acute, transversely oriented fracture of the distal radial metaphysis with [id number] impaction. Nondisplaced fracture of the ulnar styloid. Normal alignment of the carpal bones. Modera te soft tissue swelling. Splint material noted. IMPRESSION: 1. Acute distal radius fracture as described above. 2. Nondisplaced fracture of the ulnar styloid.
== END 2024-09-13 12:13 | disposition home or self-care (01) ==
LOC: ER 09:01
DX: S52.592A Other fractures of lower end of left radius, initial encounter for closed fracture (principal); M79.602 Pain in left arm; G43.909 Migraine, unspecified, not intractable, without status migrainosus; J45.909 Unspecified asthma, uncomplicated; I48.91 Unspecified atrial fibrillation; E78.00 Pure hypercholesterolemia, unspecified; Z85.3 Personal history of malignant neoplasm of breast; Z88.1 Allergy status to other antibiotic agents; Z88.5 Allergy status to narcotic agent; Z90.710 Acquired absence of both cervix and uterus; Z79.899 Other long term (current) drug therapy; Z72.89 Other problems related to lifestyle; Z60.2 Problems related to living alone; W18.39XA Other fall on same level, initial encounter; Y93.89 Activity, other specified; Y92.89 Other specified places as the place of occurrence of the external cause; Y99.8 Other external cause status
CPT/HCPCS: 29125; 73100; 99283; A6446; A6449